=== PATIENT | female | born 2000 | race Caucasian/White ===

== ENCOUNTER 2019-05-19 22:14 | Emergency (ER) | payer OTHER, SELFPAY ==
--- NOTE | ~2019-05-19 | CT_ITS ---
EXAMINATION: CT abdomen pelvis wo con DATE: 05/20/2019 00:17 INDICATION: Left flank pain and hematuria TECHNIQUE: Computed tomography (CT) of the abdomen and pelvis was performed without intravenous contr ast. The dose-length product (DLP) was 172.03 mGy-cm. Automated exposure control and iterative recons truction technique were employed. COMPARISON: 02/15/2018 FINDINGS: The lung bases are clear. The heart size is normal. The liver, spleen, pancreas, gallbladde r, and adrenal glands are normal. The kidneys are unremarkable. No stones are identified in the kidne ys, ureters, or bladder. There is no hydronephrosis or hydroureter. A moderate volume of colonic stoo l is present. No pathologically enlarged abdominal or pelvic lymph nodes are identified. There is no free intraperitoneal gas or evidence of bowel obstruction. The appendix is normal. IMPRESSION: 1. No urinary tract calculi identified. No CT correlate for the patient's symptoms. Reviewed, dictated and finalized at location A. [facility] SPECIALIST IMPRESSION: 1. No urinary tract calculi identified. No CT correlate for the patient's sympt oms.
[2019-05-19 22:30] VITALS: BP 146/92; PULSE 94; RESP 17; TEMP 37.2; O2SAT 99
[2019-05-19 22:36] LABS: Add Urine Microscopic? YES; Appearance Urine Clear (Clear); Bilirubin Urine Negative (Negative); Blood Urine 2+ (Negative); Color Urine Yellow (Yellow); Glucose Urine UA Negative (Negative); Ketones Urine Trace (Negative); Leukocyte Esterase Ur Negative LEU/UL (Negative); Nitrate Urine Negative (Negative); Protein Urine Negative (Negative); Specific Grav Ur 1.025 (1.010-1.020); pH Urine 6.5 (5.0-8.0)
[2019-05-19 22:41] LABS: Pregnancy On Board Control Positive; Urine Pregnancy Test Negative
[2019-05-19 22:42] LABS: Specific Gravity Ur 1.025 (1.010-1.035)
[2019-05-19 22:44] LABS: Amorphous Sediment Urine Few; Bacteria Urine 3+ /hpf; Squamous Epithelial Cell Urine Few /hpf (Few); WBC Urine 0-3 /hpf (0-3)
--- NOTE | 2019-05-19 22:51 | ED.ABDPAIN ---
HPI - Abdominal Pain General Chief Complaint: Abdominal Pain Stated Complaint: abd pain on left side Time Seen by Provider: 05/19/19 22:51 Source: patient Mode of arrival: ambulatory Limitations: no limitations History of Present Illness HPI narrative: 18-year-old woman comes in today complaining of right-sided abdominal pain which has gotten gradually worse over the last 2 days. Patient states that she had some nausea and vomiting at onset but has not had any since. She denies dysuria, hematuria, vomiting, diarrhea, rash in vaginal discharge. Patient has no history of kidney stones however the patient's mother has a history of kidney stones. MD elicited complaint: abdominal pain Onset (ago): day(s) (2) Pain Consistency: constant Location: LLQ and L flank Severity: severe Quality: sharp Radiation: other ( Groin) Migration to: no migration Exacerbating factors: other ( lying on left side) Relieving factors: rest Associated symptoms: nausea and vomiting Related Data Patient : No Home Medications Medication Instructions Recorded Confirmed bupropion HCl [Wellbutrin SR] See Rx Instructions .ROUTE .COMPLEX 05/19/19 05/19/19 cyclobenzaprine See Rx Instructions .ROUTE .COMPLEX 05/19/19 05/19/19 naproxen [Naprosyn] See Rx Instructions .ROUTE .COMPLEX 05/19/19 05/19/19 topiramate [Topamax] See Rx Instructions .ROUTE .COMPLEX 05/19/19 05/19/19 Allergies Allergy/AdvReac Type Severity Reaction Status Date / Time No Known Allergies Allergy Verified 05/19/19 23:18 Review of Systems Constitutional: Constitutional: Denies chills, Denies fever(s) and Denies weakness Eyes: Eyes: Denies change in vision and Denies photophobia ENT: Denies dysphagia, Denies nasal congestion and Denies sore throat Cardiovascular: Cardiovascular: Denies chest pain and Denies radiating jaw, neck or arm pain Respiratory: Respiratory: Denies cough and Denies dyspnea Gastrointestinal: Gastrointestinal: Reports as per HPI Genitourinary: Genitourinary: Denies hematuria, Denies nocturia and Denies dysuria Musculoskeletal: Musculoskeletal: Denies joint swelling Integumentary/Breasts: Skin/Breast: Denies pruritus, Denies erythema and Denies rash Neurologic: Denies vertigo, Denies syncope and Denies focal weakness Psychiatric: Psychiatric: Denies anxiety and Denies depression Endocrine: Endocrine: Denies polydipsia and Denies polyuria Hematologic/Lymphatic: Hematologic/Lymphatic: Denies easy bleeding and Denies easy bruising Allergic/Immunologic: Allergic/Immunologic: Denies lip swelling and Denies wheezing PMFSH Past Medical History Medical History Anxiety Depression Hip dysplasia Migraine Social History Social History (Updated 05/19/19 @ 23:06 by Onesimo Rangel MD) Smoking status: Current every day smoker Alcohol intake: never Substance use: current Substance use type: marijuana Other substance usage details: Daily Living arrangements: with family Exam Const: General: healthy appearing and alert Orientation/consciousness: patient oriented x3 Other: Moderate acute distress HENMT: Ears: external ears normal and EAC's normal Mouth: Yes Normal oral and palatal mucosa present and Yes moist mucous membranes Throat: posterior oropharynx normal and uvula midline Eyes: Conjunctivae: conjunctivae normal Pupils: Equal, round and reactive pupils present EOM: EOMs intact bilaterally Resp: Effort & Inspection: normal respiratory effort and not labored Auscultation: clear to auscultation bilaterally, no rales, no rhonchi and no wheezes Cardio: Rate: abnormal rate Rhythm: regular rhythm Heart sounds: no murmurs GI: GI Palp: Yes Soft to palpation and Yes Tenderness to palpation present (GI) ( left flank and left lower quadrant. No percussion tenderness or rebound.) Auscultation: normal bowel sounds Skin: General skin exam: normal color, no jaundice and
[2019-05-19 23:00] VITALS: BP 140/88; PULSE 90; RESP 16
--- NOTE | 2019-05-19 23:02 | PC.NURSE ---
left arm can not be used for IV's or lab draws, unable to start IV meds until lab done.
[2019-05-19 23:18] LABS: Hematocrit 39.6 % (35.0-49.0); Hemoglobin 13.5 g/dL (12.0-15.0); Mean Corpuscular HGB Conc 34.1 g/dL (32.0-36.0); Mean Corpuscular Hemoglobin 30.2 pg (27.0-31.0); Mean Corpuscular Volume 88.6 fL (78.0-102.0); Mean Platelet Volume 9.2 fl (9.2-11.8); Platelet Count Result 236 K/mm3 (150-420); Red Blood Count 4.47 M/mm3 (4.20-5.40); Red Cell Distribution Width 12.2 % (11.6-14.4)
[2019-05-19 23:19] LABS: Basophils Absolute Auto 0.03 K/mm3 (0.00-0.10); Basophils Percent Auto 0.5 % (0.0-1.0); Eosinophils Absolute Auto 0.07 K/mm3 (0.02-0.50); Eosinophils Percent Auto 1.2 % (1.0-6.0); Lymphocytes Absolute Auto 1.61 K/mm3 (1.10-4.50); Monocytes Absolute Auto 0.46 K/mm3 (0.10-0.90); Monocytes Percent Auto 7.7 % (2.0-11.0); Neutrophils Absolute Auto 3.8 K/mm3 (1.7-7.2); Neutrophils Percent Auto 63.6 % (50.0-70.0)
[2019-05-19] MEDS: KETOROLAC 30 MG/ML VIAL (*BKC) IV PUSH (23:20)
[2019-05-19] MEDS: ONDANSETRON INJ 4 MG/2 ML VIAL IV PUSH (23:22)
[2019-05-19 23:30] LABS: Alanine Aminotransferase 19 U/L (14-59); Albumin Level 4.3 g/dL (3.4-5.0); Alkaline Phosphatase 60 U/L (46-116); Anion Gap 14.6 mmol/L (7-16); Aspartate Amino Transferase 15 U/L (15-37); Bilirubin,Total 0.4 mg/dL (0.00-1.00); Blood Urea Nitrogen 10 mg/dL (7-18); Calcium 8.6 mg/dL (8.5-10.1); Carbon Dioxide 27 mmol/L (21-32); Chloride 105 mmol/L (98-108); Estimated Glomerular Filt Rate > 60; Glucose 96 mg/dL (70-99); Lipase 63 U/L (73-393); Osmolality Calculated 295 mOsm/kg (285-295); Potassium 3.6 mmol/L (3.5-5.1); Sodium 143 mmol/L (136-145); Total Protein 7.4 g/dL (6.4-8.2)
[2019-05-20 00:47] VITALS: BP 111/88; PULSE 72; RESP 16; TEMP 37.1
--- NOTE | 2019-05-20 00:53 | PC.NURSE ---
discharge instructions given, waiting for mom to come get patient
== END 2019-05-20 01:15 | disposition home or self-care (01) ==
PROVIDERS: Emergency Provider Emergency Medicine; PCP Physician Assistant
DX: R10.9 Unspecified abdominal pain (principal)
CPT/HCPCS: 36415; 74176; 80053; 81001; 81025; 83690; 85025; 96374; 96375; 99282; 99284; J1885; J2405

== ENCOUNTER 2019-11-03 21:17 | Emergency (ER) | payer OTHER, SELFPAY ==
[2019-11-03 21:20] VITALS: BP 147/62; PULSE 74; RESP 20; TEMP 36.8; O2SAT 99
--- NOTE | 2019-11-03 21:58 | ED.ABDPAIN ---
HPI - Abdominal Pain General Chief Complaint: Unspecified Stated Complaint: pt wants a test Time Seen by Provider: 11/03/19 21:58 Source: patient Mode of arrival: ambulatory Limitations: no limitations History of Present Illness HPI narrative: 18-year-old woman comes in today complaining of crampy low abdominal pain which has been present for the last week or so. Patient states that she has also had morning nausea for the last 2 or 3 days. She states that she took a home urine test 1 week ago and it was faintly positive. She states that her vaginal discharge is no different than usual, and she has no hematuria, dysuria, vaginal bleeding, fever, vomiting, diarrhea or rash. She has Depo-Provera for control. MD elicited complaint: abdominal pain Onset (ago): week(s) (1) Pain Consistency: intermittent Location: suprapubic Severity: mild Quality: cramping Radiation: none Migration to: no migration Exacerbating factors: nothing Relieving factors: nothing Associated symptoms: nausea Related Data Home Medications Medication Instructions Recorded Confirmed topiramate [Topamax] See Rx Instructions .ROUTE .COMPLEX 05/19/19 05/19/19 Effexor XR 37.5 mg PO DAILY 11/03/19 11/03/19 Seroquel 100 mg PO DAILY 11/03/19 11/03/19 Allergies Allergy/AdvReac Type Severity Reaction Status Date / Time No Known Allergies Allergy Verified 05/19/19 23:18 Review of Systems Constitutional: Constitutional: Denies chills, Denies fever(s) and Denies weakness Eyes: Eyes: Denies change in vision and Denies photophobia ENT: Denies dysphagia, Denies nasal congestion and Denies sore throat Cardiovascular: Cardiovascular: Denies chest pain and Denies radiating jaw, neck or arm pain Respiratory: Respiratory: Denies cough, Denies dyspnea and Denies wheezing Gastrointestinal: Gastrointestinal: Denies abdominal pain, Denies diarrhea, Denies nausea and Denies vomiting Genitourinary: Genitourinary: Denies abnormal vaginal bleeding, Denies hematuria, Denies nocturia, Denies dysuria and Denies vaginal discharge Musculoskeletal: Musculoskeletal: Denies arthralgias and Denies joint swelling Integumentary/Breasts: Skin/Breast: Denies pruritus, Denies erythema and Denies rash Neurologic: Denies vertigo, Denies dizziness and Denies syncope Hematologic/Lymphatic: Hematologic/Lymphatic: Denies easy bleeding and Denies easy bruising Allergic/Immunologic: Allergic/Immunologic: Denies lip swelling and Denies wheezing [facility] Social History Social History Smoking status: Current every day smoker Alcohol intake: never Substance use: current Substance use type: marijuana Other substance usage details: Daily Exam Const: General: healthy appearing, no acute distress and alert Orientation/consciousness: patient oriented x3 Limitations: no limitations HENMT: Head: normal to inspection Ears: external ears normal, TM's normal bilaterally and EAC's normal General nose exam: Normal nares present Face and sinus: normal facial exam Mouth: Yes moist mucous membranes Throat: posterior oropharynx normal Eyes: Conjunctivae: conjunctivae normal Pupils: Equal, round and reactive pupils present EOM: EOMs intact bilaterally Neck: Neck: normal visual inspection and no lymphadenopathy Resp: Effort & Inspection: normal respiratory effort and not labored Auscultation: clear to auscultation bilaterally, no rales, no rhonchi and no wheezes Cardio: Rate: regular rate Rhythm: regular rhythm Heart sounds: no murmurs GI: Inspection: non-distended GI Palp: Yes Soft to palpation, No Tenderness to palpation present (GI), No Guarding due to palpation present (GI), No Rigid due to palpation, No Palpable mass present and No Rebound tenderness present Skin: General skin exam: normal color, no jaundice and no pallor Rashes: no rashes Neuro: General: patient oriented x3, moves all e
[2019-11-03 22:06] LABS: Add Urine Microscopic? YES; Appearance Urine Clear (Clear); Bilirubin Urine Negative (Negative); Blood Urine 1+ (Negative); Color Urine Yellow (Yellow); Glucose Urine UA Negative (Negative); Ketones Urine Negative (Negative); Leukocyte Esterase Ur Negative (Negative); Nitrate Urine Negative (Negative); Protein Urine Negative (Negative); Specific Grav Ur 1.015 (1.010-1.020); Urobilinogen Urine 0.2 mg/dL (0.2-1.0)
[2019-11-03 22:09] LABS: RBC Urine 0-2 /hpf (0-2)
[2019-11-03 22:10] LABS: Bacteria Urine Trace /hpf; Mucus Urine None seen /lpf; WBC Urine None seen /hpf (0-3)
[2019-11-03 22:11] LABS: Pregnancy On Board Control Positive; Urine Pregnancy Test Negative
== END 2019-11-03 22:24 | disposition home or self-care (01) ==
PROVIDERS: Emergency Provider Emergency Medicine; PCP Physician Assistant
DX: R10.2 Pelvic and perineal pain (principal)
CPT/HCPCS: 81001; 81025; 87491; 87591; 99282; 99284

== ENCOUNTER 2020-01-27 15:24 | Emergency (ER) | payer OTHER, SELFPAY ==
[2020-01-27 15:40] VITALS: BP 140/82; PULSE 92; RESP 16; TEMP 36.7; O2SAT 98
[2020-01-27 16:28] LABS: Basophils Absolute Auto 0.03 K/mm3 (0.00-0.10); Basophils Percent Auto 0.4 % (0.0-1.0); Eosinophils Absolute Auto 0.18 K/mm3 (0.02-0.50); Eosinophils Percent Auto 2.3 % (1.0-6.0); Hematocrit 42.4 % (35.0-49.0); Hemoglobin 14.2 g/dL (12.0-15.0); Immature Granulocyte Absolute 0.02 K/mm3 (0.00-0.00); Immature Granulocyte Percent A 0.3 % (0.0-0.0); Lymphocytes Absolute Auto 2.01 K/mm3 (1.10-4.50); Mean Corpuscular HGB Conc 33.5 g/dL (32.0-36.0); Mean Corpuscular Hemoglobin 31.1 pg (27.0-31.0); Mean Corpuscular Volume 92.8 fL (78.0-102.0); Mean Platelet Volume 9.8 fl (9.2-11.8); Monocytes Absolute Auto 0.41 K/mm3 (0.10-0.90); Monocytes Percent Auto 5.3 % (2.0-11.0); Neutrophils Absolute Auto 5.1 K/mm3 (1.7-7.2); Neutrophils Percent Auto 65.7 % (50.0-70.0); Platelet Count Result 247 K/mm3 (150-420); Red Blood Count 4.57 M/mm3 (4.20-5.40); Red Cell Distribution Width 12.2 % (11.6-14.4); White Blood Count 7.7 K/mm3 (4.8-10.8)
--- NOTE | 2020-01-27 16:33 | ED.FEMALEGU ---
HPI - Female Genitourinary General Chief complaint: Urogenital-Female Stated complaint: abnormal discharge/lower abd pain Source: patient Mode of arrival: ambulatory Limitations: no limitations History of Present Illness HPI Narrative: this is a 19-year-old female that presents with a arm vaginal discharge that she describes as green mucus like discharged started over the last 24 to 48 hours patient has unprotected sex with her boyfriend and is suspicious of STI, currently there is a mild abdominal discomfort secondary to history of endometriosis. With no fever chills no nausea vomiting no flank pain no dysuria no hematuria. MD elicited complaint: vaginal discharge Female Urogenital Radiation: Suprapubic Severity scale (1-10): 4 Consistency: constant Vaginal discharge: other ( green mucus-like discharge) Vaginal bleeding: moderate Exacerbating factors: none Relieving factors: none Associated symptoms: abdominal pain Related Data Home Medications Medication Instructions Recorded Confirmed topiramate [Topamax] 50 mg PO DAILY 05/19/19 05/19/19 Effexor XR 37.5 mg PO DAILY 11/03/19 11/03/19 Seroquel 100 mg PO DAILY 11/03/19 11/03/19 Allergies Allergy/AdvReac Type Severity Reaction Status Date / Time No Known Allergies Allergy Verified 05/19/19 23:18 Review of Systems Review of Systems: All systems reviewed & are unremarkable except as noted in HPI and below PMFSH Past Medical History Medical History Anxiety Depression Hip dysplasia Migraine Social History Social History Smoking status: Current every day smoker Alcohol intake: never Substance use: current Substance use type: marijuana Other substance usage details: Daily Exam Const: General: no acute distress and alert Orientation/consciousness: patient oriented x3 HENMT: Head: normal to inspection Eyes: Conjunctivae: conjunctivae normal Pupils: Equal, round and reactive pupils present EOM: EOMs intact bilaterally Neck: Neck: normal visual inspection, no lymphadenopathy and no meningeal signs Chest: Chest palpation & inspection: normal inspection of the chest Resp: Effort & Inspection: normal respiratory effort Auscultation: clear to auscultation bilaterally Cardio: Rate: regular rate Rhythm: regular rhythm GI: GI Palp: Yes Soft to palpation Auscultation: normal bowel sounds : Other: Pelvic exam does not elicit any erythema there is currently no vaginal discharge no order, does have some mild discomfort with some cervical motion. Back/Spine/Pelvis: Back: no CVA tenderness Neuro: General: patient oriented x3 Extrem: General: normal to inspection and no pedal edema Psych: Mental Status: mental status grossly normal Course Course Emergency Course: Patient received a 250 mg of ceftriaxone and 1 g of azithromycin, advised patient that we checked a GNC, HIV RPR. Vital Signs Vital signs: Vital Signs Temperature 36.7 C 01/27/20 15:40 Pulse Rate 92 01/27/20 15:40 Respiratory Rate 16 01/27/20 15:40 Blood Pressure 140/82 01/27/20 15:40 Pulse Oximetry 98 01/27/20 15:40 Temperature 36.7 C 01/27/20 15:40 Pulse Rate 92 01/27/20 15:40 Respiratory Rate 16 01/27/20 15:40 Blood Pressure 140/82 01/27/20 15:40 Pulse Oximetry 98 01/27/20 15:40 MDM - Female Genitourinary Lab Data Result diagrams: 01/27/20 16:23 01/27/20 16:23 Labs: Lab Results 01/27/20 01/27/20 01/27/20 Range/Units 16:13 16:23 16:23 WBC Pending RBC Pending Hgb Pending Hct Pending MCV Pending MCH Pending MCHC Pending RDW Pending Plt Count Pending MPV Pending Immature Gran % (Auto) Pending Neut % (Auto) Pending Lymph % (Auto) Pending Dixon % (Auto) Pending Eos % (Auto) Pending Baso % (Auto) Pending
[2020-01-27 16:43] LABS: Alanine Aminotransferase 21 U/L (14-59); Albumin Level 4.3 g/dL (3.4-5.0); Alkaline Phosphatase 73 U/L (46-116); Anion Gap 11 mmol/L (8-16); Aspartate Amino Transferase 16 U/L (15-37); Bilirubin,Total 0.2 mg/dL (0.00-1.00); Blood Urea Nitrogen 11 mg/dL (7-18); Calcium 9.1 mg/dL (8.5-10.1); Carbon Dioxide 24 mmol/L (21-32); Chloride 103 mmol/L (98-108); Estimated CRCL calculation 88 ml/min; Estimated Glomerular Filt Rate > 60; Glucose 89 mg/dL (70-99); Osmolality Calculated 284 mOsm/kg (285-295); Potassium 3.9 mmol/L (3.5-5.1); Sodium 138 mmol/L (136-145); Total Protein 7.9 g/dL (6.4-8.2)
[2020-01-27 17:05] LABS: HIV 1 P24 AG Negative (Negative); HIV 1/2 AB Negative (Negative)
[2020-01-27] MEDS: LIDOCAINE HCL 1% LOCAL INJ 20 ML VIAL (17:15)
[2020-01-27] MEDS: cefTRIAXone 250 MG VIAL IM (17:15)
[2020-01-27] MEDS: AZITHROMYCIN 250 MG TABLET 1000 MG PO (17:15)
[2020-01-27 17:17] VITALS: PULSE 90; RESP 15; TEMP 36.6; O2SAT 99
[2020-01-27 17:21] VITALS: BP 140/82; PULSE 90; RESP 15; TEMP 36.6; O2SAT 99
[2020-01-29 18:53] LABS: RPR Screen Non-Reactive (Non-Reactive)
--- NOTE | 2020-01-31 15:55 | PC.NURSE ---
FLAGYL 2 G PO X 1 DOSE CALLED IN TO [facility]
== END 2020-01-27 17:25 | disposition home or self-care (01) ==
PROVIDERS: Emergency Provider Emergency Medicine; PCP Physician Assistant
DX: Z20.2 Contact with and (suspected) exposure to infections with a predominantly sexual mode of transmission (principal)
CPT/HCPCS: 36415; 80053; 85025; 86592; 86703; 87070; 87491; 87591; 96372; 99283; 99284; A9270; J0696

== ENCOUNTER 2020-04-15 09:52 | Outpatient (CLI) | payer OTHER, SELFPAY ==
[2020-04-15 10:22] LABS: SARS-CoV-2 Ag Negative (Negative)
== END 2020-04-15 09:53 | disposition home or self-care (01) ==
PROVIDERS: PCP Physician Assistant; Visit Provider Physician Assistant
DX: Z20.822 Contact with and (suspected) exposure to COVID-19 (principal)
CPT/HCPCS: 87426; C9803

== ENCOUNTER 2020-06-01 17:37 | Emergency (ER) | payer OTHER, SELFPAY ==
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
[2020-06-01 17:58] VITALS: BP 126/75; PULSE 84; RESP 16; TEMP 36.8; O2SAT 98
[2020-06-01] MEDS: TETANUS,DIPHTHERIA,AC PERTUSSIS ADULT 0.5 ML (ADACEL) IM (18:05)
== END 2020-06-01 18:15 | disposition home or self-care (01) ==
PROVIDERS: Emergency Provider Emergency Medicine; PCP Physician Assistant
DX: T22.211A Burn of second degree of right forearm, initial encounter (principal); X12.XXXA Contact with other hot fluids, initial encounter
CPT/HCPCS: 90471; 90715; 99282

== ENCOUNTER 2020-07-27 14:50 | Emergency (ER) | payer OTHER, SELFPAY ==
[2020-07-27 15:00] VITALS: BP 135/95; PULSE 102; RESP 16; TEMP 36.8; O2SAT 98
--- NOTE | 2020-07-27 15:23 | ED.GENADULT ---
HPI - General Adult General Chief complaint: Unspecified Stated complaint: preg test Source: patient and RN notes reviewed Mode of arrival: ambulatory Limitations: no limitations History of Present Illness HPI narrative: patient has a history of endometriosis and had a abdominal pain on the left side today. She is currently not on any control and having unprotected sex. She took a urine test at home that was negative. She is very anxious and worried about being because she had a beer last night. MD complaint: Wants test Location: abdomen Radiation: non-radiation Severity: mild Quality: stabbing and sharp Pain Consistency: now resolved Relieving factors: none Exacerbating factors: none Associated symptoms: denies other symptoms Treatments prior to arrival: none Related Data Home Medications Medication Instructions Recorded Confirmed cyclobenzaprine 10 mg PO HS 01/27/20 07/27/20 quetiapine 100 mg PO DAILY 01/27/20 07/27/20 topiramate 50 mg PO BID 01/27/20 07/27/20 venlafaxine 37.5 mg PO DAILY 01/27/20 07/27/20 Allergies Allergy/AdvReac Type Severity Reaction Status Date / Time No Known Allergies Allergy Verified 05/19/19 23:18 Review of Systems Review of Systems: All systems reviewed & are unremarkable except as noted in HPI and below PMFSH Past Medical History Medical History (Updated 07/27/20 @ 15:38 by Brandin Farias MD) Anxiety Craniosynostosis Depression Endometriosis Hip dysplasia Migraine Social History Social History Smoking status: Current every day smoker Alcohol intake: never Substance use: current Substance use type: marijuana Other substance usage details: Daily Exam Const: General: cooperative, healthy appearing, well developed, alert, awake and Physically active Nutritional Appearance: average body habitus and well nourished Orientation/consciousness: patient oriented x3 Limitations: no limitations Other: female nurse in room during examination. HENMT: Head: normal to inspection Eyes: General: appearance normal, both eyes and all related structures Periorbital: periorbital findings normal Eyelids: eyelids normal Conjunctivae: conjunctivae normal Sclera: sclerae normal Pupils: Equal, round and reactive pupils present EOM: EOMs intact bilaterally Neck: Neck: normal visual inspection and full ROM Resp: Effort & Inspection: normal respiratory effort Auscultation: clear to auscultation bilaterally Cardio: Rate: regular rate Rhythm: regular rhythm Heart sounds: no murmurs GI: GI Palp: Yes abdominal tenderness ( Lower pelvis, mild) and No Guarding due to palpation present (GI) Auscultation: normal bowel sounds Back/Spine/Pelvis: Cervical Spine: cervical ROM normal Thoracic/Lumbar Spine: thoraco-lumbar ROM normal Skin: General skin exam: normal color and turgor normal Neuro: General: patient oriented x3, gait normal and moves all extremities Cranial nerves: Yes CN's II-XII intact bilaterally Cognition (Neuro): normal cognition Speech: normal speech Motor exam (neuro): 5/5 motor strength present throughout Sensory Exam: normal sensation Extrem: General: normal to inspection, full ROM and no clubbing, cyanosis or edema Psych: Appearance: grossly normal and well kempt Speech and movement: Normal speech and movement present Affect: normal affect Attitude: cooperative Thought process: Normal thought process present Course Course Emergency Course: patient reassured that her test is negative she should wait to have her next menstrual cycle. Vital Signs Vital signs: Vital Signs Temperature 36.8 C 07/27/20 15:00 Pulse Rate 102 H 07/27/20 15:00 Respiratory Rate 16 07/27/20 15:00 Blood Pressure 135/95 H 07/27/20 15:00 Pulse Oximetry 98 07/27/20 15:00 Temperature 36.8 C 07/27/20 15:00 Pulse Rate 102 H 07/27/20 15:00 Respiratory Ra
[2020-07-27 15:31] LABS: Pregnancy On Board Control Positive; Urine Pregnancy Test Negative
== END 2020-07-27 15:46 | disposition home or self-care (01) ==
PROVIDERS: Emergency Provider Emergency Medicine; PCP Physician Assistant
DX: R10.9 Unspecified abdominal pain (principal); Z32.02 Encounter for pregnancy test, result negative; F17.200 Nicotine dependence, unspecified, uncomplicated; F12.90 Cannabis use, unspecified, uncomplicated; F41.9 Anxiety disorder, unspecified; Q75.0 Craniosynostosis; F32.9 Major depressive disorder, single episode, unspecified; N80.9 Endometriosis, unspecified; Q89.9 Congenital malformation, unspecified; G43.909 Migraine, unspecified, not intractable, without status migrainosus
CPT/HCPCS: 81025; 99282

== ENCOUNTER 2020-12-20 16:39 | Emergency (ER) | payer OTHER, SELFPAY ==
--- NOTE | ~2020-12-20 | CT_ITS ---
EXAMINATION: CT abdomen pelvis wo con DATE: 12/20/2020 18:10 INDICATION: Hematuria. Diffuse abdominal pain with left lower quadrant predominance. TECHNIQUE: Computed tomography (CT) of the abdomen and pelvis was performed without intravenous contr ast. Automated exposure control and iterative reconstruction technique were employed. The dose-length product was 251.69 mGy-cm. COMPARISON: 05/20/2019 FINDINGS: Lung bases are clear. Heart size is normal. No pericardial or pleural effusion. Small calcifications at the liver and spleen consistent with old granulomatous disease. Gallbladder, pancreas, bilateral a drenal glands are normal. Kidneys and ureters are normal with no urolithiasis, hydroureteronephrosis or perinephric/ureteral stranding. Bladder, retroverted uterus and bilateral adnexa are unremarkable. Moderate amount of stool in the proximal and distal colon. Small bowel and appendix are normal. No f ree intraperitoneal gas or fluid. No pathologically enlarged abdominal or pelvic lymphadenopathy. Bon es are unremarkable. IMPRESSION: 1. No urolithiasis or acute intra-abdominal/pelvic process. Reviewed, dictated and finalized at location A.
--- NOTE | 2020-12-20 16:55 | ED.ABDPAIN ---
HPI - Abdominal Pain General Chief Complaint: Abdominal Pain Stated Complaint: pain in stomach severe Source: patient and RN notes reviewed Mode of arrival: ambulatory Limitations: no limitations History of Present Illness MD elicited complaint: abdominal pain Pertinent past history: other (endometriosis) Onset (ago): day(s) (2) Pain Consistency: intermittent Location: RLQ and LLQ Severity: moderate Quality: cramping and stabbing Radiation: none Migration to: no migration Exacerbating factors: vomiting Relieving factors: nothing Associated symptoms: vomiting and dysuria Related Data Home Medications Medication Instructions Recorded Confirmed cyclobenzaprine 10 mg PO HS 01/27/20 12/20/20 quetiapine 100 mg PO DAILY 01/27/20 12/20/20 topiramate 50 mg PO BID 01/27/20 12/20/20 venlafaxine 37.5 mg PO DAILY 01/27/20 12/20/20 Allergies Allergy/AdvReac Type Severity Reaction Status Date / Time No Known Allergies Allergy Verified 05/19/19 23:18 Review of Systems Constitutional: Constitutional: Denies chills and Denies fever(s) Cardiovascular: Cardiovascular: Denies chest pain Respiratory: Respiratory: Denies cough and Denies dyspnea Gastrointestinal: Gastrointestinal: Denies constipation and Denies diarrhea PMFSH Past Medical History Medical History Anxiety Craniosynostosis Depression Endometriosis Hip dysplasia Migraine Social History Social History Smoking status: Current every day smoker Alcohol intake: never Substance use: current Substance use type: marijuana Other substance usage details: Daily Exam Const: General: healthy appearing and no acute distress Nutritional Appearance: well nourished Orientation/consciousness: patient oriented x3 Other: female nurse in room during examination. HENMT: Head: normal to inspection Ears: external ears normal Face and sinus: normal facial exam Mouth: Yes moist mucous membranes Eyes: Conjunctivae: conjunctivae normal Pupils: Equal, round and reactive pupils present EOM: EOMs intact bilaterally Neck: Neck: normal visual inspection Resp: Effort & Inspection: normal respiratory effort Auscultation: clear to auscultation bilaterally Cardio: Rate: regular rate Rhythm: regular rhythm GI: GI Palp: Yes Soft to palpation, Yes Tenderness to palpation present (GI) (lower abdomen moderate), Yes Guarding due to palpation present (GI) and No Rebound tenderness present Auscultation: normal bowel sounds : General: Yes no CVA tenderness Back/Spine/Pelvis: Cervical Spine: cervical ROM normal Thoracic/Lumbar Spine: thoraco-lumbar ROM normal Skin: General skin exam: normal color Rashes: no rashes Neuro: General: patient oriented x3, moves all extremities, no meningeal signs and no focal motor deficits Speech: normal speech Gait exam (Neuro): Normal gait present Extrem: General: normal to inspection and no clubbing, cyanosis or edema Psych: Appearance: grossly normal and well kempt Mental Status: mental status grossly normal Affect: normal affect Attitude: cooperative Thought content: Yes Normal thought content present Course Vital Signs Vital signs: Vital Signs Temperature 36.2 C L 12/20/20 17:00 Pulse Rate 61 12/20/20 17:00 Respiratory Rate 18 12/20/20 17:00 Blood Pressure 155/98 H 12/20/20 17:00 Pulse Oximetry 100 12/20/20 17:00 Temperature 36.2 C L 12/20/20 17:00 Pulse Rate 72 12/20/20 18:25 Respiratory Rate 16 12/20/20 18:25 Blood Pressure 114/64 12/20/20 18:25 Pulse Oximetry 100 12/20/20 18:25 MDM - Abdominal Pain Lab Data Attestation: I reviewed the patient's lab results. Result diagrams: 12/20/20 17:15 12/20/20 17:15 Labs: Lab Results 12/20/20 12/20/20 12/20/20 Range/Units 17:15 17:15 17:15 WBC 10.9 H (4.8-10.8) K/mm3 RBC 4.84 (4.20-5.40)
[2020-12-20 17:00] VITALS: BP 155/98; PULSE 61; RESP 18; TEMP 36.2; O2SAT 100
[2020-12-20] MEDS: ONDANSETRON HCL ODT 4 MG TABLET PO (17:08)
[2020-12-20 17:19] LABS: Basophils Absolute Auto 0.02 K/mm3 (0.00-0.10); Basophils Percent Auto 0.2 % (0.0-1.0); Eosinophils Absolute Auto 0.09 K/mm3 (0.02-0.50); Eosinophils Percent Auto 0.8 % (1.0-6.0); Hematocrit 43.8 % (35.0-49.0); Hemoglobin 14.7 g/dL (12.0-15.0); Immature Granulocyte Absolute 0.06 K/mm3 (0.00-0.00); Immature Granulocyte Percent A 0.6 % (0.0-0.0); Lymphocytes Absolute Auto 1.31 K/mm3 (1.10-4.50); Mean Corpuscular HGB Conc 33.6 g/dL (32.0-36.0); Mean Corpuscular Hemoglobin 30.4 pg (27.0-31.0); Mean Corpuscular Volume 90.5 fL (78.0-102.0); Mean Platelet Volume 9.8 fl (9.2-11.8); Monocytes Absolute Auto 0.48 K/mm3 (0.10-0.90); Monocytes Percent Auto 4.4 % (2.0-11.0); Neutrophils Absolute Auto 8.9 K/mm3 (1.7-7.2); Platelet Count Result 217 K/mm3 (150-420); Red Blood Count 4.84 M/mm3 (4.20-5.40); Red Cell Distribution Width 12.4 % (11.6-14.4); White Blood Count 10.9 K/mm3 (4.8-10.8)
[2020-12-20 17:21] LABS: Add Urine Microscopic? YES; Appearance Urine Clear (Clear); Bilirubin Urine Negative (Negative); Blood Urine 2+ (Negative); Color Urine Light Yellow (Yellow); Glucose Urine UA Negative (Negative); Ketones Urine Trace (Negative); Leukocyte Esterase Ur Trace LEU/UL (Negative); Nitrate Urine Negative (Negative); Protein Urine Trace (Negative); Urobilinogen Urine 0.2 mg/dL (0.2-1.0); pH Urine 6.5 (5.0-8.0)
[2020-12-20 17:31] LABS: Pregnancy On Board Control Positive; Urine Pregnancy Test Negative; WBC Urine 0-3 /hpf (0-3)
[2020-12-20 17:32] LABS: Bacteria Urine 2+ /hpf; Squamous Epithelial Cell Urine Rare /hpf (Few)
[2020-12-20 17:36] LABS: Alanine Aminotransferase 19 U/L (14-59); Albumin Level 4.5 g/dL (3.4-5.0); Alkaline Phosphatase 75 U/L (46-116); Anion Gap 12 mmol/L (8-16); Aspartate Amino Transferase 12 U/L (15-37); Bilirubin,Total 0.4 mg/dL (0.00-1.00); Blood Urea Nitrogen 10 mg/dL (7-18); Calcium 8.9 mg/dL (8.5-10.1); Carbon Dioxide 27 mmol/L (21-32); Chloride 104 mmol/L (98-108); Estimated CRCL calculation 72 ml/min; Estimated Glomerular Filt Rate > 60; Glucose 92 mg/dL (70-99); Lipase 51 U/L (73-393); Osmolality Calculated 295 mOsm/kg (285-295); Potassium 3.6 mmol/L (3.5-5.1); Sodium 143 mmol/L (136-145); Total Protein 7.7 g/dL (6.4-8.2)
[2020-12-20 17:39] LABS: CRP < 0.5 mg/dL (0.0-0.9)
[2020-12-20] MEDS: KETOROLAC 30 MG/ML VIAL (*BKC) IM (17:50)
[2020-12-20 18:25] VITALS: BP 114/64; PULSE 72; RESP 16; O2SAT 100
== END 2020-12-20 19:25 | disposition home or self-care (01) ==
PROVIDERS: Emergency Provider Emergency Medicine
DX: K59.00 Constipation, unspecified (principal)
CPT/HCPCS: 36415; 74176; 80053; 81001; 81025; 83690; 85025; 86140; 96372; 99283; 99284; A9270; J1885

== ENCOUNTER 2021-09-06 20:17 | Emergency (ER) | payer OTHER, SELFPAY ==
[2021-09-06 20:24] VITALS: BP 131/72; PULSE 85; RESP 20; TEMP 36.2; O2SAT 98
--- NOTE | 2021-09-06 20:37 | ED.NAVMDI ---
HPI - Nausea/Vomiting/Diarrhea General Chief complaint: Nausea/Vomiting/Diarrhea Stated complaint: vomiting Time Seen by Provider: 09/06/21 20:37 History of Present Illness HPI Narrative: 20-year-old female patient 1 para 0, approximately 22 weeks is here with complaints of nausea and vomiting all day. She states that symptoms started this morning and have persisted. She reports having vomited 3 times during the day. States that she has intermittent cramping in the lower abdomen but can feel the baby kicking. Denies any fever or chills. States that she has felt hot all day and denies any urinary symptoms. No diarrhea. Patient smokes half a pack of cigarettes. And she is under care of OB at [facility]. The patient states that she does have nausea pills at home but apparently that did not help. Related Data Home Medications Medication Instructions Recorded Confirmed ondansetron HCl 4 mg tablet 4 tablet PO PRN 09/06/21 09/06/21 Allergies Allergy/AdvReac Type Severity Reaction Status Date / Time No Known Allergies Allergy Verified 09/06/21 20:29 Review of Systems Review of Systems: All systems reviewed & are unremarkable except as noted in HPI and below PMFSH Past Medical History Medical History Anxiety Craniosynostosis Depression Endometriosis Hip dysplasia Migraine Social History Social History Smoking status: Current every day smoker Alcohol intake: never Substance use: current Substance use type: marijuana Other substance usage details: Daily Exam Const: General: healthy appearing, no acute distress and alert Nutritional Appearance: well nourished Orientation/consciousness: patient oriented x3 Limitations: no limitations HENMT: Head: normal to inspection Ears: external ears normal General nose exam: Normal external nose present Face and sinus: normal facial exam Mouth: Yes Normal oral and palatal mucosa present and Yes moist mucous membranes Teeth and gingiva: dentition normal Throat: posterior oropharynx normal Eyes: Conjunctivae: conjunctivae normal Cornea: corneas normal Pupils: Equal, round and reactive pupils present EOM: EOMs intact bilaterally Direct Ophthalmoscopy: no photophobia Neck: Neck: normal visual inspection, no lymphadenopathy and no meningeal signs Chest: Chest palpation & inspection: normal inspection of the chest Resp: Effort & Inspection: normal respiratory effort, not labored, no retractions, not tachypneic and no use of accessory muscles Auscultation: clear to auscultation bilaterally Cardio: Rate: regular rate Rhythm: regular rhythm Heart sounds: Murmur heart sound present GI: GI Palp: Yes Soft to palpation, No Tenderness to palpation present (GI), No Guarding due to palpation present (GI), No Rigid due to palpation, No Hernia present, No Palpable mass present and No Rebound tenderness present Auscultation: normal bowel sounds : General: Yes bladder normal to palpation Other: Pelvic exam has been deffered Back/Spine/Pelvis: Back: no CVA tenderness Skin: General skin exam: normal color Rashes: no rashes Wounds: no wounds Neuro: General: patient oriented x3, moves all extremities, no meningeal signs, no focal motor deficits and CN's II-XI intact bilaterally Cranial nerves: Yes Nystagmus not present Speech: normal speech Gait exam (Neuro): Normal gait present Extrem: General: normal to inspection Psych: Mental Status: mental status grossly normal Affect: Anxious affect present Attitude: cooperative Course Course Emergency Course: Labs have been reviewed and the patient has normal white cell count with a normal platelet count. Liver enzymes are normal electrolytes are normal. Urinalysis shows 1+ ketones and 2+ bacteria no pyuria. No leukocyte esterase or nitrite positive. Urine culture has been establi
[2021-09-06 20:55] LABS: Basophils Absolute Auto 0.02 K/mm3 (0.00-0.10); Basophils Percent Auto 0.2 % (0.0-1.0); Eosinophils Absolute Auto 0.06 K/mm3 (0.02-0.50); Eosinophils Percent Auto 0.6 % (1.0-6.0); Hematocrit 32.4 % (35.0-49.0); Hemoglobin 11.4 g/dL (12.0-15.0); Immature Granulocyte Absolute 0.04 K/mm3 (0.00-0.00); Immature Granulocyte Percent A 0.4 % (0.0-0.0); Lymphocytes Absolute Auto 1.73 K/mm3 (1.10-4.50); Lymphocytes Percent Auto 17.2 % (18.0-42.0); Mean Corpuscular HGB Conc 35.2 g/dL (32.0-36.0); Mean Platelet Volume 9.5 fl (9.2-11.8); Monocytes Absolute Auto 0.55 K/mm3 (0.10-0.90); Monocytes Percent Auto 5.5 % (2.0-11.0); Neutrophils Absolute Auto 7.6 K/mm3 (1.7-7.2); Neutrophils Percent Auto 76.1 % (50.0-70.0); Platelet Count Result 190 K/mm3 (150-420); Red Blood Count 3.56 M/mm3 (4.20-5.40); Red Cell Distribution Width 12.8 % (11.6-14.4)
[2021-09-06] MEDS: LACTATED RINGERS 1,000 ML 999 ML IV CONT ×2 (20:57→21:48)
[2021-09-06] MEDS: ONDANSETRON INJ 4 MG/2 ML VIAL IV PUSH (21:01)
[2021-09-06 21:05] LABS: Add Urine Microscopic? YES; Appearance Urine Clear (Clear); Bilirubin Urine Negative (Negative); Blood Urine Negative (Negative); Color Urine Yellow (Yellow); Glucose Urine UA Negative (Negative); Ketones Urine 1+ (Negative); Leukocyte Esterase Ur Negative (Negative); Nitrate Urine Negative (Negative); Protein Urine Negative (Negative); Urobilinogen Urine 0.2 mg/dL (0.2-1.0)
[2021-09-06 21:11] LABS: Bacteria Urine 2+ /hpf; RBC Urine 0-2 /hpf (0-2); Squamous Epithelial Cell Urine Many /hpf (Few); WBC Urine 0-3 /hpf (0-3)
[2021-09-06 21:12] LABS: Alanine Aminotransferase 17 U/L (14-59); Albumin Level 3.3 g/dL (3.4-5.0); Alkaline Phosphatase 66 U/L (46-116); Anion Gap 11 mmol/L (8-16); Aspartate Amino Transferase 17 U/L (15-37); Bilirubin,Total 0.4 mg/dL (0.00-1.00); Blood Urea Nitrogen 4 mg/dL (7-18); Calcium 8.5 mg/dL (8.5-10.1); Carbon Dioxide 23 mmol/L (21-32); Chloride 104 mmol/L (98-108); Estimated CRCL calculation 119 ml/min; Estimated Glomerular Filt Rate > 60; Glucose 82 mg/dL (70-99); Osmolality Calculated 281 mOsm/kg (285-295); Potassium 3.2 mmol/L (3.5-5.1); Sodium 138 mmol/L (136-145); Total Protein 6.9 g/dL (6.4-8.2)
[2021-09-06 22:24] VITALS: BP 114/54; PULSE 64; RESP 16; O2SAT 100
== END 2021-09-06 23:34 | disposition home or self-care (01) ==
PROVIDERS: Emergency Provider Emergency Medicine; PCP Physician Assistant
DX: R11.10 Vomiting, unspecified (principal); Z33.1 Pregnant state, incidental
CPT/HCPCS: 36415; 80053; 81001; 85025; 87086; 96361; 96374; 99284; J2405; J7120

== ENCOUNTER 2021-10-27 19:30 | Emergency (ER) | payer OTHER, SELFPAY ==
[2021-10-27 19:30] VITALS: BP 121/81; PULSE 85; RESP 22; TEMP 36.8; O2SAT 100
--- NOTE | 2021-10-27 19:35 | PC.NURSE ---
Call placed to [facility] per protocol. ERP then spoke to oncall OB Dr Erickson for emergency transfer due to pt labor. Pt is anxious and noted to have 1 episode of contraction that lasted about 30 sec. Pt setup for exam per ERP.
[2021-10-27] MEDS: SODIUM CHLORIDE 0.9% IV 1,000 ML 999 ML (20:01)
--- NOTE | 2021-10-27 20:04 | PC.NURSE ---
Edgar Campbell MD, pts ob called and made aware of situation. [phone]
--- NOTE | 2021-10-27 20:04 | ED.PREGNANCY ---
HPI - General Chief complaint: OB/Uterine Contractions Stated complaint: contractions Time Seen by Provider: 10/27/21 19:34 Source: patient, family and RN notes reviewed Mode of arrival: ambulatory Limitations: no limitations History of Present Illness HPI Narrative: Primigravida with mild uterine contractions Complaint: contractions Onset (ago): hour(s) (1) Pain Consistency: intermittent Location: pelvis Severity: moderate Quality: Cramping and Dull Relieving factors: none Exacerbating factors: none Vaginal discharge: none Vaginal bleeding: none Patient : Yes Expected Date of Delivery: 01/11/22 OB History - Current : no complications care: followed by OB Related Data : 2 Para: 0 Total number of abortions (spontaneous and elective): 1 Home Medications Medication Instructions Recorded Confirmed ondansetron HCl 4 mg tablet 4 tablet PO PRN 09/06/21 09/06/21 Allergies Allergy/AdvReac Type Severity Reaction Status Date / Time No Known Allergies Allergy Verified 09/06/21 20:29 Review of Systems Review of Systems: All systems reviewed & are unremarkable except as noted in HPI and below Constitutional: Constitutional: Reports no additional constitutional complaints Eyes: Eyes: Reports no additional eye complaints ENT: Reports system reviewed and no additional complaints, except as documented Cardiovascular: Cardiovascular: Reports no additional cardiovascular complaints Respiratory: Respiratory: Reports no additional respiratory complaints Gastrointestinal: Gastrointestinal: Reports no additional gastrointestinal complaints Genitourinary: Comments: uterine contractions at 29 weeks normal . Musculoskeletal: Musculoskeletal: Reports no additional musculoskeletal complaints Integumentary/Breasts: Skin/Breast: Reports system reviewed and no additional complaints, except as docu Neurologic: Reports system reviewed and no additional complaints, except as documented Psychiatric: Psychiatric: Reports no additional psychiatric complaints Endocrine: Endocrine: Reports no additional endocrine complaints Hematologic/Lymphatic: Hematologic/Lymphatic: Reports no additional hematologic/lymphatic complaints Allergic/Immunologic: Allergic/Immunologic: Reports no additional allergic/immunologic complaints [facility] Past Medical History Medical History Anxiety Craniosynostosis Depression Endometriosis Hip dysplasia Migraine Social History Social History Smoking status: Current every day smoker Alcohol intake: never Substance use: current Substance use type: marijuana Other substance usage details: Daily Exam Const: General: healthy appearing and no acute distress Nutritional Appearance: well nourished Orientation/consciousness: patient oriented x3 Limitations: no limitations HENMT: Head: normal to inspection Ears: external ears normal, TM's normal bilaterally and EAC's normal General nose exam: Normal external nose present and Normal nares present Face and sinus: normal facial exam and sinuses nontender Mouth: Yes Normal oral and palatal mucosa present and Yes moist mucous membranes Teeth and gingiva: dentition normal Throat: posterior oropharynx normal Eyes: Conjunctivae: conjunctivae normal Pupils: Equal, round and reactive pupils present EOM: EOMs intact bilaterally Neck: Neck: normal visual inspection, no lymphadenopathy and no meningeal signs Chest: Chest palpation & inspection: normal inspection of the chest Resp: Effort & Inspection: normal respiratory effort Auscultation: clear to auscultation bilaterally Cardio: Rate: regular rate Rhythm: regular rhythm GI: GI Palp: Yes Soft to palpation and No Tenderness to palpation present (GI) Auscultation: normal bowel sounds : General: Yes
[2021-10-27 20:10] VITALS: BP 137/83; PULSE 80; RESP 20; O2SAT 100
== END 2021-10-27 20:17 | disposition short-term general hospital (02) ==
PROVIDERS: Emergency Provider Emergency Medicine; PCP Physician Assistant
DX: O60.00 Preterm labor without delivery, unspecified trimester (principal)
CPT/HCPCS: 99285; J7030

== ENCOUNTER 2021-12-15 23:23 | Observation (INO) | payer OTHER, SELFPAY ==
[2021-12-15] MEDS: TERBUTALINE SULFATE 1 MG/ML VIAL 0.25 MG SUB-Q (23:33)
[2021-12-15 23:48] VITALS: BMI 30.4
--- NOTE | 2021-12-15 23:48 | OBADM ---
This patient, Mony Wagner, admitted to the OB room Labor/Delivery/Recovery 118 for observation. Patient/family oriented to hospital policies and general routines including ID bracelet, bed and alarms, visiting hours, pain management, procedures, bathroom and other care routines, personal items, smoking policy, room service/diet, and visiting hours. Patient/Family are encouraged to report perceived risks to care and to ask questions if they do not understand what they are told or what they should do.
--- NOTE | 2021-12-16 00:16 | P.PNOB_ITS ---
OB - Triage/Final Diagnosis Visit Information Date of evaluation: 12/16/21 Reason for evaluation: decreased movement and threatened labor Comments/Additional reasons for admission: I have assessed the risk for this patient, Mony Wagner, and determined t hat she would benefit from observation care.
[2021-12-16 00:29] LABS: Appearance Urine Clear (Clear); Bilirubin Urine 1+ (Negative); Blood Urine Negative (Negative); Color Urine Yellow (Yellow); Glucose Urine UA Negative (Negative); Ketones Urine 4+ mg/dL (Negative); Leukocyte Esterase Ur Negative LEU/UL (Negative); Nitrate Urine Negative (Negative); Protein Urine Trace mg/dL (Negative); Specific Grav Ur 1.025 (1.001-1.035)
[2021-12-16 01:04] LABS: Bacteria Urine Trace /hpf; Mucus Urine Rare /lpf; Squamous Epithelial Cell Urine Occasional /hpf (Few)
[2021-12-16 01:15] LABS: Add Urine Microscopic? YES
== END 2021-12-16 01:15 | disposition home or self-care (01) ==
LOC: ANHOBOP 23:25 → ANHLDR 23:26
PROVIDERS: Admitting Provider Obstetrics & Gynecology; PCP Physician Assistant; Visit Provider Obstetrics & Gynecology
DX: O36.8130 Decreased fetal movements, third trimester, not applicable or unspecified (principal); O47.03 False labor before 37 completed weeks of gestation, third trimester; Z3A.36 36 weeks gestation of pregnancy
CPT/HCPCS: 81001; 87086; 96372; G0378; G0379; J3105

== ENCOUNTER 2021-12-22 20:25 | Observation (INO) | payer OTHER, SELFPAY ==
[2021-12-22 20:30] VITALS: BMI 32.7
--- NOTE | 2021-12-22 22:38 | OBADM ---
This patient, Mony Wagner, admitted to the OB room Labor/Delivery/Recovery 102 for observation. Patient/family oriented to hospital policies and general routines including ID bracelet, bed and alarms, visiting hours, pain management, procedures, bathroom and other care routines, personal items, smoking policy, room service/diet, and visiting hours. Patient/Family are encouraged to report perceived risks to care and to ask questions if they do not understand what they are told or what they should do.
--- NOTE | 2022-01-01 09:02 | PM.OBTRLD ---
OB - Triage/Final Diagnosis Visit Information Comments/Additional reasons for admission: I have assessed the risk for this patient, Mony Wagner, and determined that she would benefit from observation care. Final Diagnosis (1) Vaginal discharge during : Code(s): O26.899 - Other specified related conditions, unspecified trimester; N89.8 - Other specified noninflammatory disorders of vagina Status: Acute
== END 2021-12-22 22:57 | disposition home or self-care (01) ==
PROVIDERS: Admitting Provider Obstetrics & Gynecology; PCP Physician Assistant; Visit Provider Obstetrics & Gynecology
DX: O26.893 Other specified pregnancy related conditions, third trimester (principal); N89.8 Other specified noninflammatory disorders of vagina; Z3A.37 37 weeks gestation of pregnancy
CPT/HCPCS: G0378; G0379

== ENCOUNTER 2021-12-29 12:07 | Observation (INO) | payer OTHER, SELFPAY ==
[2021-12-29 12:15] VITALS: BMI 32.7
[2021-12-29 13:15] VITALS: BP 131/85; PULSE 84
--- NOTE | 2021-12-31 06:52 | PM.OBTRLD ---
OB - Triage/Final Diagnosis Visit Information Reason for evaluation: threatened labor Comments/Additional reasons for admission: I have assessed the risk for this patient, Mony Wagner, and determined that she would benefit from observation care.
== END 2021-12-29 13:44 | disposition home or self-care (01) ==
PROVIDERS: Admitting Provider Obstetrics & Gynecology; PCP Physician Assistant; Visit Provider Obstetrics & Gynecology
DX: O47.1 False labor at or after 37 completed weeks of gestation (principal); O36.8130 Decreased fetal movements, third trimester, not applicable or unspecified; Z3A.38 38 weeks gestation of pregnancy
CPT/HCPCS: G0378; G0379

== ENCOUNTER 2021-12-30 02:55 | Inpatient (IN) | payer OTHER, SELFPAY ==
[2021-12-30] VITALS (162 sets, daily range): BP systolic 109–163; BP diastolic 52–128; PULSE 58–224; RESP 16–18; TEMP 36.5–36.9; O2SAT 88–100; BMI 32.6
[2021-12-30 03:35] LABS: Basophils Percent Auto 0.3 % (0.2-1.2); Eosinophils Absolute Auto 0.1 K/mm3 (0-0.3); Eosinophils Percent Auto 0.6 % (0-4.4); Hematocrit 28.7 % (37.0-47.0); Hemoglobin 9.9 g/dL (12.0-15.0); Immature Granulocyte Absolute 0.05 K/mm3 (0.00-0.031); Immature Granulocyte Percent A 0.4 % (0-0.5); Lymphocytes Absolute Auto 2.01 K/mm3 (0.9-3.2); Lymphocytes Percent Auto 17.3 % (18.3-44.2); Mean Corpuscular HGB Conc 34.5 g/dl (32-36); Mean Corpuscular Hemoglobin 30.2 pg (26-34); Mean Corpuscular Volume 87.5 fl (80-100); Monocytes Absolute Auto 0.7 K/mm3 (0.1-0.6); Monocytes Percent Auto 5.9 % (2.6-8.5); Neutrophils Absolute Auto 8.8 K/mm3 (1.3-6.7); Neutrophils Percent Auto 75.5 % (45.5-73.1); Platelet Count Result 267 k/mm3 (150-375); Red Blood Count 3.28 M/mm3 (4.2-5.4); Red Cell Distribution Width 13.1 % (11.5-14.5); White Blood Count 11.6 K/mm3 (4.5-10.0)
[2021-12-30] MEDS: LACTATED RINGERS 1,000 ML 125 ML IV CONT ×3 (03:57→05:41)
--- NOTE | 2021-12-30 04:02 | LDADM ---
This patient, Mony Wagner, was admitted to Labor/Delivery/Recovery 106 on 12/30/21 at 02:55. Plans for labor, pain management and were discussed with patient. Patient/family oriented to hospital policies and general routines including ID bracelet, bed and alarms, visiting hours, pain management, procedures, bathroom and other care routines, personal items, smoking policy, room service/diet and guest tray routines, infant security routines, and visiting hours. Patient/Family are encouraged to report perceived risks to care and to ask questions if they do not understand what they are told or what they should do. See OBIX for further documentation.
--- NOTE | 2021-12-30 04:08 | P.PNAN_ITS ---
Anes - Eval Pre Procedure Procedure: labor epidural Date/Time: 12/30/21 04:08 Pre Op Diagnosis: Leaking Patient Data Age: 21 Gender: F Height: Weight: Last Vital Signs Pulse 65 12/30/21 04:01 BP 129/95 H 12/30/21 04:01 Allergies Allergy/AdvReac Type Severity Reaction Status Date / Time latex Allergy Rash Verified 12/14/21 14:47 Home Medications Medication Instructions Recorded Confirmed Type ondansetron HCl 4 mg tablet 4 tablet PO PRN 09/06/21 12/29/21 History Laboratory Tests 12/30/21 12/30/21 03:28 03:28 WBC 11.6 K/mm3 H K/mm3 (4.5-10.0) RBC 3.28 M/mm3 L M/mm3 (4.2-5.4) Hgb 9.9 g/dL L g/dL (12.0-15.0) Hct 28.7 % L % (37.0-47.0) MCV 87.5 fl fl (80-100) MCH 30.2 pg pg (26-34) MCHC 34.5 g/dl g/dl (32-36) RDW 13.1 % % (11.5-14.5) Plt Count 267 k/mm3 k/mm3 (150-375) MPV 10.0 fl fl (7.4-10.4) Immature Gran % (Auto) 0.4 % % (0-0.5) Neut % (Auto) 75.5 % H % (45.5-73.1) Lymph % (Auto) 17.3 % L % (18.3-44.2) Dixon % (Auto) 5.9 % % (2.6-8.5) Eos % (Auto) 0.6 % % (0-4.4) Baso % (Auto) 0.3 % % (0.2-1.2) Lymph # (Auto) 2.01 K/mm3 K/mm3 (0.9-3.2) Dixon # (Auto) 0.7 K/mm3 H K/mm3 (0.1-0.6) Eos # (Auto) 0.1 K/mm3 K/mm3 (0-0.3) Baso # (Auto) 0.0 K/mm3 K/mm3 (0.0-0.1) Abs Immat Gran (auto) 0.05 K/mm3 H K/mm3 (0.00-0.031) Absolute Neuts (auto) 8.8 K/mm3 H K/mm3 (1.3-6.7) Absolute Nucleated RBC 0.0 K/mm3 K/mm3 (0.0-0.012) Nucleated RBC % 0.0 % % (0.0-0.2) RPR Pending Patient hx anesthesia problems: none Family hx anesthesia problems: none Results Review: All pre-operative results and documents have been reviewed as part of the pre- operative evaluation. [facility] Past Medical History Medical History Anxiety Craniosynostosis Depression Endometriosis Hip dysplasia Migraine Family History Family History Mother Chronic obstructive pulmonary disease Asthma Social History Social History Smoking status: Current every day smoker Alcohol intake: never Substance use: current Substance use type: marijuana Other substance usage details: Daily Last use: 12/12/21 Spiritual care concerns: No Exam Day of Procedure 12/30/21 04:08 Patient weight: obese Heart: regular rate and rhythm Lungs: normal air movement Airway: Mallampati scale Neurological: alert and oriented
--- NOTE | 2021-12-30 04:25 | PM.IMHP ---
H&P: HPI History of Present Illness Date/Time: 12/30/21 04:25 Chief Complaint: labor at term Narrative: this is a 20-year-old 1 para 0 whose last menstrual period was in March of 2021, EDC is 01/11/2022, confirmed by 7 week ultrasound presents with rupture membranes at term. Her has been uncomplicated. She is negative for B strep PMFSH Past Medical History Medical History Anxiety Craniosynostosis Depression Endometriosis Hip dysplasia Migraine Family History Family History Mother Chronic obstructive pulmonary disease Asthma Social History Social History Smoking status: Current every day smoker Alcohol intake: never Substance use: current Substance use type: marijuana Other substance usage details: Daily Last use: 12/12/21 Spiritual care concerns: No Meds Home Medications and Allergies Home Medications Medication Instructions Recorded Confirmed Type ondansetron HCl 4 mg tablet 4 tablet PO PRN 09/06/21 12/29/21 History Allergies Allergy/AdvReac Type Severity Reaction Status Date / Time latex Allergy Rash Verified 12/14/21 14:47 Vital Signs Vital Signs - 24 hr 12/30/21 03:14 12/30/21 03:17 12/30/21 03:31 Pulse Rate 84 77 71 Blood Pressure 142/104 H 156/89 H 139/91 H Pulse Oximetry 12/30/21 04:01 12/30/21 04:14 12/30/21 04:16 Pulse Rate 65 68 75 Blood Pressure 129/95 H 135/83 131/88 Pulse Oximetry 100 12/30/21 04:18 12/30/21 04:19 12/30/21 04:21 Pulse Rate 82 64 71 Blood Pressure 123/90 127/96 H 132/84 Pulse Oximetry 100 12/30/21 04:23 12/30/21 04:24 Pulse Rate 66 Blood Pressure 137/79 Pulse Oximetry 100 Exam Const: General: cooperative and healthy appearing Orientation/consciousness: oriented to person, oriented to place and oriented to time Resp: Effort & Inspection: normal respiratory effort Cardio: Rate: regular rate Rhythm: regular rhythm Heart sounds: S1 normal heart sound present and S2 normal heart sound present GI: Inspection: normal to inspection Auscultation: normal bowel sounds : Speculum Exam - Vagina: normal appearance of the vagina Speculum Exam - Cervix: normal appearance of the cervix and Cervical os open ( cervix 3cm with clear fluid. FHTs reassuring) H&P: Results Labs Labs: Short CBC 12/30/21 Range/Units 03:28 WBC 11.6 H (4.5-10.0) K/mm3 Hgb 9.9 L (12.0-15.0) g/dL Hct 28.7 L (37.0-47.0) % Plt Count 267 (150-375) k/mm3 Assessment and Plan Assessment and plan (1) Term : Code(s): Z34.90 - Encounter for supervision of normal , unspecified, unspecified trimester Status: Acute Plan spontaneous vaginal delivery is expected. She is an epidural candidate
[2021-12-30 07:58] LABS: Rapid Plasma Reagin Non-Reactive (NonReactive)
[2021-12-30] MEDS: OXYTOCIN 30 UNITS/NS 500 ML 30 UNITS/500 ML BAG IV CONT (08:00)
[2021-12-30] MEDS: ONDANSETRON INJ 4 MG/2 ML VIAL IV PUSH (12:20)
--- NOTE | 2021-12-30 12:33 | PM.OBPNLAB ---
Pain Control Date/time seen: 12/30/21 12:33 Pain control: tolerating well and epidural Comments: pushing Pelvic Exam Dilation (cm): 10 station: +2
--- NOTE | 2021-12-30 13:38 | PM.OBPRVD ---
OB - Delivery Note Procedure Delivery date: 12/30/21 Induction method: None Delivery augmentation: Pitocin Delivery monitor: External FHT Route of delivery: Episiotomy description: None Laceration Description: None Specimen: No Quantitative Blood Loss (ml): 59 Anesthesia type: Epidural Disposition: Floor [place] Baby Date of : 12/30/21 Time of : 13:30 Weeks of gestation at delivery: 38 gender: Female presentation: vertex position: Right Occiput Anterior Placenta delivery description: Spontaneous Cord Vessel Description: 3 Vessels and Delayed Cord Clamping score one minute: 8 score five minutes: 8
--- NOTE | 2021-12-30 16:15 | OBPPTRN ---
Patient transferred to post room # 283 via wheelchair accompanied by fob and . PT introductions made and plan of care discussed per post , pain management, breast feeding, daily care activities. PT and significant other both recipients of such instructions and no barriers to learning identified at this time. PT received instructions this shift via one to one discussion, mom baby care guide and demonstrations. Oriented to unit, room, information board, rooming in, admission packet and security measures. Patient verbalizes understanding.
[2021-12-30] MEDS: POLYSACCHARIDE IRON COMPLEX 150 MG CAPSULE PO (18:07)
[2021-12-30] MEDS: DOCUSATE SODIUM 100 MG CAPSULE PO (18:07)
[2021-12-30] MEDS: LANOLIN (LANSINOH) 7.5 GM CREAM 1 APPLIC TOPICAL (18:08)
[2021-12-30 18:47] LABS: Barbiturate Screen Urine Negative (Negative); Benzodiazepines Screen Urine Negative (Negative)
[2021-12-30 18:48] LABS: Amphetamine Screen Urine Negative (Negative); Cannabinoid Screen Urine Positive (Negative); Cocaine Screen Urine Negative (Negative); Opiate Screen Urine Negative (Negative); Phencyclidine Screen Urine Negative (Negative)
[2021-12-30 18:55] LABS: Methadone Screen Urine Negative (Negative)
[2021-12-31 05:29] LABS: Hematocrit 21.4 % (37.0-47.0)
[2021-12-31 05:36] LABS: Hemoglobin 7.1 g/dL (12.0-15.0)
[2021-12-31] MEDS: IBUPROFEN 600 MG TABLET PO (06:58)
[2021-12-31] MEDS: DOCUSATE SODIUM 100 MG CAPSULE PO (07:00)
[2021-12-31] MEDS: MULTIVIT/MIN/PREN/FOL AC/IRON TABLET 1 TAB PO (07:00)
[2021-12-31] MEDS: POLYSACCHARIDE IRON COMPLEX 150 MG CAPSULE PO (07:00)
[2021-12-31] MEDS: ACETAMINOPHEN 325 MG TABLET 650 MG PO (07:00)
--- NOTE | 2021-12-31 07:53 | WPDANLDPN2 ---
Anes-Prog Note L&D Date/Time: 12/31/21 07:53 Comfortable throughout: labor and delivery Neuraxial method: epidural Epidural/Spinal procedure site: clean & non-tender Neuro status: Neuro function grossly intact. Cardiovascular status: normal Respiratory status: normal Airway patency: baseline Mental status: baseline Post-Op hydration status: normal Vital Signs: Last Vital Signs Temp 97.7 F 12/30/21 18:50 Pulse 79 12/30/21 18:50 Resp 16 12/30/21 18:50 BP 109/73 12/30/21 18:50 Pulse Ox 97 12/30/21 16:30 O2 Del Method Room Air 12/30/21 16:30 Pain score (VAS): 0 I/O: Intake & Output 12/30/21 12/30/21 12/31/21 15:59 23:59 07:59 Intake Total 980 Balance 980 Post-procedural complaints: none Patient feedback: Patient satisfied with anesthetic care.
[2021-12-31 08:05] VITALS: BP 122/72; PULSE 81; RESP 16; TEMP 36.7; O2SAT 99
--- NOTE | 2021-12-31 08:16 | PM.DS ---
DS: Admitting Diagnosis Discharge Date 12/31/2021 Admitting Diagnosis term DS: Discharge Diagnosis Discharge Diagnosis (1) Term : Code(s): Z34.90 - Encounter for supervision of normal , unspecified, unspecified trimester Status: Acute DS: Summary Hospital Course Reason for hospitalization: labor Hospital Course: patient was admitted at term in active labor. She underwent spontaneous vaginal delivery on 12/30/2021. Her hospital course was unremarkable. She remained afebrile. She was up, voiding without difficulty, ambulating, bottle feeding, and generally without complaints. Time Spent with Patient Time attestation: Total time spent providing and/or coordinating discharge services: Exam Const: General: cooperative, healthy appearing and comfortable Nutritional Appearance: average body habitus Orientation/consciousness: oriented to person, oriented to place and oriented to time DS: Data Data Completed and Pending Labs on day of discharge: Labs from last 24 hours 12/31/21 12/30/21 05:22 18:06 Hgb 7.1 L Hct 21.4 L Urine Opiates Screen Negative Urine Methadone Screen Negative Ur Barbiturates Screen Negative Ur Phencyclidine Scrn Negative Ur Amphetamine Screen Negative U Benzodiazepines Scrn Negative Urine Cocaine Screen Negative U Cannabinoids Screen Positive A Discharge Plan Discharge Attending physician on discharge: Edgar Alvarez Discharging Clinician: Edgar Alvarez Patient Disposition: Home, Self-Care Activity: may shower, no straining and pelvic rest Diet: heart healthy Wound Care Instructions: follow printed instructions Patient Instructions: Antibiotic Form Stand Alone Forms: General Discharge Information Follow-up/Referrals: Edgar Alvarez MD [Physician] - Discharge Medications: Continued ondansetron HCl 4 mg tablet 4 tablet PO PRN Date of admission: 12/30/21 02:55 Primary Care Provider: RosasEdgar Admitting Provider: Edgar Alvarez Attending physician on admission: Edgar Alvarez Condition: Stable
[2021-12-31] MEDS: TETANUS,DIPHTHERIA,AC PERTUSSIS ADULT (0.5 ML) BOOSTRIX IM (11:42)
[2021-12-31 12:00] VITALS: BP 132/83; PULSE 83; RESP 16; TEMP 36.8; O2SAT 100
[2022-01-03 10:59] VITALS: BP 144/94; PULSE 67; RESP 20; TEMP 37.2; O2SAT 100
== END 2021-12-31 15:23 | disposition home or self-care (01) | DRG 560 ==
LOC: ANHLDR 03:11 → ANHOB2 16:27
PROVIDERS: Admitting Provider Obstetrics & Gynecology; PCP Physician Assistant; Visit Provider Obstetrics & Gynecology
DX: O76 Abnormality in fetal heart rate and rhythm complicating labor and delivery (principal); O99.334 Smoking (tobacco) complicating childbirth; F17.210 Nicotine dependence, cigarettes, uncomplicated; Z3A.38 38 weeks gestation of pregnancy; Z37.0 Single live birth; Z23 Encounter for immunization
CPT/HCPCS: 36415; 80307; 84112; 85014; 85018; 85025; 86592; 86850; 86900; 86901; 90471; 90686; 90715; A9270; G0008; G0378; G0379; J2405; J2590; J2795; J7120

== ENCOUNTER 2022-01-03 11:27 | Outpatient (CLI) | payer OTHER, SELFPAY ==
[2022-01-03] VITALS (8 sets, daily range): BP systolic 135–153; BP diastolic 81–93; PULSE 60–90
--- NOTE | 2022-01-03 12:05 | PM.OBTRLD ---
OB - Triage/Final Diagnosis Visit Information Date of evaluation: 01/03/22 Reason for evaluation: other ( hypertension) Comments/Additional reasons for admission: I have assessed the risk for this patient, Mony Anna RamosWagner, and determined that she would benefit from observation care. Evaluation Vital signs: Vital Signs - 24 hr 01/03/22 11:45 01/03/22 12:00 Pulse Rate 61 60 Blood Pressure 145/92 H 145/81 H
[2022-01-03 12:26] LABS: Basophils Percent Auto 0.3 % (0.2-1.2); Eosinophils Absolute Auto 0.3 K/mm3 (0-0.3); Eosinophils Percent Auto 3.1 % (0-4.4); Hematocrit 23.1 % (37.0-47.0); Hemoglobin 7.5 g/dL (12.0-15.0); Immature Granulocyte Absolute 0.08 K/mm3 (0.00-0.031); Immature Granulocyte Percent A 0.9 % (0-0.5); Lymphocytes Absolute Auto 1.79 K/mm3 (0.9-3.2); Mean Corpuscular HGB Conc 32.5 g/dl (32-36); Mean Corpuscular Hemoglobin 29.9 pg (26-34); Mean Platelet Volume 9.4 fl (7.4-10.4); Monocytes Absolute Auto 0.4 K/mm3 (0.1-0.6); Monocytes Percent Auto 4.4 % (2.6-8.5); Neutrophils Absolute Auto 6.8 K/mm3 (1.3-6.7); Neutrophils Percent Auto 72.3 % (45.5-73.1); Platelet Count Result 313 k/mm3 (150-375); Red Blood Count 2.51 M/mm3 (4.2-5.4); Red Cell Distribution Width 13.5 % (11.5-14.5); White Blood Count 9.4 K/mm3 (4.5-10.0)
[2022-01-03] MEDS: LABETALOL HCL 100 MG TABLET 200 MG PO (12:53)
[2022-01-03 12:59] LABS: Alanine Aminotransferase 27 U/L (6-35); Albumin Level 3.4 g/dL (3.5-5.1); Alkaline Phosphatase 127 U/L (38-126); Anion Gap 9 mmol/L (8-16); Aspartate Amino Transferase 33 U/L (14-36); Bilirubin,Total 0.3 mg/dL (0.2-1.3); Blood Urea Nitrogen 5 mg/dL (7-17); Calcium 8.1 mg/dL (8.4-10.2); Carbon Dioxide 27 mmol/L (22-30); Chloride 104 mmol/L (98-107); Estimated Glomerular Filt Rate > 60; Glucose 73 mg/dL (65-110); Potassium 2.8 mmol/L (3.4-5.0); Sodium 140 mmol/L (137-145); Uric Acid 4.7 mg/dL (2.5-7.5)
[2022-01-03] MEDS: POTASSIUM CHLORIDE 20 MEQ TABLET 40 MEQ PO (13:46)
--- NOTE | 2022-01-03 15:03 | PC.NURSE ---
Dr Castaneda notified of BP's and Potassium level, orders received.
== END 2022-01-03 13:50 | disposition home or self-care (01) ==
LOC: ANHOBOP 11:29 → ANHOBPP 11:30
PROVIDERS: PCP Physician Assistant; Visit Provider Obstetrics & Gynecology
DX: O13.9 Gestational [pregnancy-induced] hypertension without significant proteinuria, unspecified trimester (principal); Z3A.00 Weeks of gestation of pregnancy not specified
CPT/HCPCS: 36415; 80053; 84550; 85025; 99199; A9270

== ENCOUNTER 2023-06-09 17:25 | Outpatient (CLI) | payer OTHER, SELFPAY ==
[2023-06-09 18:09] LABS: Monoscreen Negative (Negative); Negative Monotest Control Negative (Negative); Positive Monotest Control Positive (Positive)
== END 2023-06-09 17:26 | disposition home or self-care (01) ==
LOC: CHSLAB 17:27
PROVIDERS: PCP Family Medicine; Visit Provider Family Medicine
DX: J02.9 Acute pharyngitis, unspecified (principal)
CPT/HCPCS: 36415; 86308

== ENCOUNTER 2023-08-24 16:57 | Outpatient (CLI) | payer OTHER, SELFPAY ==
[2023-08-24 17:15] LABS: Basophils Absolute Auto 0.03 K/mm3 (0.00-0.10); Basophils Percent Auto 0.4 % (0.0-1.0); Eosinophils Absolute Auto 0.23 K/mm3 (0.02-0.50); Eosinophils Percent Auto 2.8 % (1.0-6.0); Hematocrit 41.1 % (35.0-49.0); Hemoglobin 13.9 g/dL (12.0-15.0); Immature Granulocyte Absolute 0.01 K/mm3 (0.00-0.00); Immature Granulocyte Percent A 0.1 % (0.0-0.0); Lymphocytes Absolute Auto 2.43 K/mm3 (1.10-4.50); Lymphocytes Percent Auto 29.5 % (18.0-42.0); Mean Corpuscular HGB Conc 33.8 g/dL (32-36); Mean Corpuscular Hemoglobin 28.8 pg (27.0-31.0); Mean Corpuscular Volume 85.3 fL (78.0-102.0); Mean Platelet Volume 9.6 fl (9.2-11.8); Monocytes Absolute Auto 0.37 K/mm3 (0.10-0.90); Monocytes Percent Auto 4.5 % (2.0-11.0); Neutrophils Absolute Auto 5.18 K/mm3 (1.70-7.20); Neutrophils Percent Auto 62.7 % (50.0-70.0); Platelet Count Result 223 K/mm3 (150-420); Red Blood Count 4.82 M/mm3 (4.20-5.40); Red Cell Distribution Width 13.8 % (11.6-14.4); White Blood Count 8.3 K/mm3 (4.8-10.8)
[2023-08-24 18:00] LABS: Folic Acid 7.3 ng/mL (8.6->20); Iron 62 ug/dL (50-170); Percent Iron Saturation 19 % (12-57); Thyroid Stimulating Hormone 0.64 uIU/mL (0.36-3.74); Vitamin B12 266 pg/mL (193-986)
[2023-08-26 03:04] LABS: Vitamin D 25 Hydroxy 26 ng/mL (30-100)
== END 2023-08-24 16:58 | disposition home or self-care (01) ==
LOC: CHSLAB 16:59
PROVIDERS: PCP Family Medicine; Visit Provider Family Medicine
DX: R23.3 Spontaneous ecchymoses (principal); G47.00 Insomnia, unspecified; F31.9 Bipolar disorder, unspecified
CPT/HCPCS: 36415; 82306; 82607; 82746; 83540; 83550; 84443; 85025

== ENCOUNTER 2023-10-10 10:42 | Outpatient (CLI) | payer OTHER, SELFPAY ==
--- NOTE | ~2023-10-10 | XR_ITS ---
AP view of the pelvis Clinical history: Pain Findings: No acute fracture or dislocation is seen. Osseous alignment is anatomic. Bilateral hip and SI joint spaces are preserved. Soft tissues are unremarkable. Impression: No significant abnormality is seen. Reviewed, dictated and finalized at location M. Impression: No significant abnormality is seen.
--- NOTE | ~2023-10-10 | XR_ITS ---
Lumbosacral Spine: AP and lateral views Clinical History: Pain Findings: The normal lordotic curve is maintained. The vertebral bodies and posterior elements are i ntact. The intervertebral disc spaces are preserved. The sacroiliac joints are normally outlined. Impression: No significant abnormality. Reviewed, dictated and finalized at [facility]. Impression: No significant abnormality.
== END 2023-10-10 10:43 | disposition home or self-care (01) ==
LOC: CHSIMG 10:44
PROVIDERS: PCP Family Medicine; Visit Provider Family Medicine
DX: M54.40 Lumbago with sciatica, unspecified side (principal)
CPT/HCPCS: 72100; 72170

== ENCOUNTER 2025-02-10 13:38 | Observation (INO) | payer OTHER, SELFPAY ==
[2025-02-10] VITALS (52 sets, daily range): BP systolic 96–156; BP diastolic 46–88; PULSE 74–194; TEMP 36.4–36.6; O2SAT 86–100; BMI 31.8
--- NOTE | ~2025-02-10 | US_ITS ---
EXAMINATION: US OB limited, 02/10/2025 16:30 [employer]ER HISTORY: abdominal pain placenta check Comparison: None Technique: Ramos-scale and color Doppler images were obtained. Findings: Single live intrauterine corresponding to 31 weeks and 5 days in cephalic presentation and longitudinal lie, heart rate 158, SHAUN 14.9. The placenta is located posteriorly and appears unremarkable IMPRESSION: Single live intrauterine detailed above. No acute process. Reviewed, dictated and finalized at location P. [employer] ROOM OFFICER IMPRESSION: Single live intrauterine detailed above. No acute process .
--- NOTE | 2025-02-10 13:38 | OBADM ---
This patient, Mony Wagner, admitted to the OB room OB Post 116 for observation. Patient/family oriented to hospital policies and general routines including ID bracelet, bed and alarms, visiting hours, pain management, procedures, bathroom and other care routines, personal items, smoking policy, room service/diet, and visiting hours. Patient/Family are encouraged to report perceived risks to care and to ask questions if they do not understand what they are told or what they should do.
--- NOTE | 2025-02-10 13:45 | PC.NURSE ---
pt reports harley since 0200 this AM. Pt states that they were Jaxson Larry at first but continued to get stronger through out the day. Pt reports harley every 4 min for the last couple of hours and that her belly hurts. Pt belly palpates soft. Pt does report lifting her daughter who is heavy quite often.
[2025-02-10 14:18] LABS: Add Urine Microscopic? YES; Appearance Urine Cloudy (Clear); Glucose Urine UA Negative (Negative); Leukocyte Esterase Ur Trace LEU/UL (Negative); Nitrate Urine Negative (Negative); Non Pathogenic Casts 0-2; Specific Grav Ur 1.018 (1.001-1.035)
[2025-02-10] MEDS: LACTATED RINGERS 1,000 ML 100 ML IV CONT ×3 (14:35→19:56)
[2025-02-10] MEDS: TERBUTALINE SULFATE 1 MG/ML VIAL 0.25 MG SUB-Q ×2 (14:37→15:39)
--- NOTE | 2025-02-10 15:19 | PC.NURSE ---
RN x2 in with the pt. Pt fiercely trembling while telling us she is in pain and needs to go to the bathroom. Pt return from bathroom to the bed and cervix was rechecked by Opal Falcon RN. Cervix unchanged. called and notified of the events. Order received to check CBC, CMP and ultrasound.
[2025-02-10 16:24] LABS: Hematocrit 28.0 % (37.0-47.0); Hemoglobin 9.5 g/dL (12.0-15.0); Immature Granulocyte Percent A 0.5 % (0-0.5); Lymphocytes Absolute Auto 2.05 K/mm3 (0.9-3.2); Mean Corpuscular HGB Conc 33.9 g/dl (32-36); Mean Corpuscular Hemoglobin 30.4 pg (26-34); Mean Corpuscular Volume 89.5 fl (80-100); Nucleated Red Blood Cells Absolute Auto 0.000 K/mm3 (0.0-0.012); Nucleated Red Blood Cells Perc 0.0 % (0.0-0.2); Platelet Count Result 200 k/mm3 (150-375); Red Blood Count 3.13 M/mm3 (4.2-5.4); White Blood Count 11.7 K/mm3 (4.5-10.0)
[2025-02-10 16:37] LABS: Alanine Aminotransferase 20 U/L (6-35); Albumin Level 3.4 g/dL (3.5-5.1); Alkaline Phosphatase 123 U/L (38-126); Anion Gap 8 mmol/L (4-12); Aspartate Amino Transferase 19 U/L (14-36); Bilirubin,Total 0.5 mg/dL (0.2-1.3); Blood Urea Nitrogen 2 mg/dL (7-17); Calcium 8.2 mg/dL (8.4-10.2); Carbon Dioxide 18 mmol/L (22-30); Chloride 108 mmol/L (98-107); Estimated CRCL calculation 143 ml/min; Estimated Glomerular Filt Rate > 60; Glucose 100 mg/dL (65-110); Potassium 2.5 mmol/L (3.4-5.0); Sodium 134 mmol/L (137-145); Total Protein 6.2 g/dL (6.3-8.2)
--- NOTE | 2025-02-10 17:02 | PC.NURSE ---
pt called out, RN found pt with emesis bag with 200ml in the bag. Pt refusing Zofran at this time, saying she no longer feels nauseous. Pt no longer states she feels more comfortable and at this time has no pain.
[2025-02-10] MEDS: KCL 20 MEQ/SW 100 ML 100 ML 50 MEQ IVPB (17:12)
--- NOTE | 2025-02-10 17:53 | P.HP_ITS ---
H&P: HPI History of Present Illness Date/Time: 02/10/25 17:53 Chief Complaint: Abdominal pain and questionable contractions Narrative: 24 year 2 para 1 at 30 weeks gestation who ER of contractions contract ions were seen she received a couple doses of terbutaline is significantly she was seen last week afebrile hospital transferred to [facility] in [place] at which time she was watched sent she continues did have some pain and she is hypokalemic year she is admitted for IV hydration and replacement of potassium and treatment of contractions Review of Systems Review of Systems: All systems reviewed & are unremarkable except as noted in HPI and below Constitutional: Constitutional: Reports no additional constitutional complaints Eyes: Eyes: Reports no additional eye complaints ENT: Reports system reviewed and no additional complaints, except as documented Cardiovascular: Cardiovascular: Reports no additional cardiovascular complaints Respiratory: Respiratory: Reports no additional respiratory complaints Gastrointestinal: Gastrointestinal: Reports no additional gastrointestinal complaints Genitourinary: Comments: uterine contractions at 29 weeks normal . Musculoskeletal: Musculoskeletal: Reports no additional musculoskeletal complaints Integumentary/Breasts: Skin/Breast: Reports system reviewed and no additional complaints, except as docu Neurologic: Reports system reviewed and no additional complaints, except as documented Psychiatric: Psychiatric: Reports no additional psychiatric complaints Endocrine: Endocrine: Reports no additional endocrine complaints Hematologic/Lymphatic: Hematologic/Lymphatic: Reports no additional hematologic/lymphatic complaints Allergic/Immunologic: Allergic/Immunologic: Reports no additional allergic/immunologic complaints [facility] Past Medical History Medical History Craniosynostosis Endometriosis Migraine Depression Anxiety Hip dysplasia Family History Family History Mother Chronic obstructive pulmonary disease Asthma Social History Social History Smoking status: Current every day smoker Tobacco type: cigarettes Alcohol intake: never Substance use: current Substance use type: marijuana Other substance usage details: Daily Last use: 12/12/21 Lack of Transportation: YES Lack of Food: Never True Current Housing: I Have Housing Concerned About Future Housing: No Difficulty Paying Gas/Electric Bills: No Difficulty Paying for Meds: No Currently Unemployed: No Education: High School Diploma/GED Difficulty w/ Childcare or Family Care: No Living arrangements: with family Spiritual care concerns: No Meds Home Medications and Allergies Home Medications ?Medication ?Instructions ?Recorded ?Confirmed ?Type ondansetron HCl 4 mg tablet 4 tablet PO PRN 09/06/21 1 04/12/24 History Allergies Allergy/AdvReac Type Severity Reaction Status Date / Time latex Allergy Rash Verified 12/30/21 04:33 Vital Signs Vital Signs - 24 hr 02/10/25 13:57 02/10/25 14:00 02/10/25 14:16 Temperature 97.8 F Pulse Rate 81 85 Blood Pressure 96/75 L 132/72 Pulse Oximetry 02/10/25 14:30 02/10/25 14:37 02/10/25 14:42 Temperature Pulse Rate 82 Blood Pressure 133/84 Pulse Oximetry 99 100 02/10/25 14:46 02/10/25 14:47 02/10/25 14:52 Temperature Pulse Rate 80 Blood Pressure 124/53 L Pulse Oximetry 100 100 02/10/25 14:57 02/10/25 15:00 02/10/25 15:02 Temperature Pulse Rate 84 Blood Pressure 128/60 Pulse Oximetry 99 100 02/10/25 15:07 02/10/25 15:21 02/10/25 15:26 Temperature Pulse Rate Blood Pressure Pulse Oximetry 100 86 L 100 02/10/25 15:31 02/10/25 15:36 02/10/25 15:41 Temperature Pulse Rate 89 Blood Pressure 116/80 Pulse Oximetry 100 100 100 02/10/25 15:45 02/10/25 15:46 02/10/25 15:51 Temperature Pulse Rate 103 H Blood Pressure 156/88 H Pulse Oximetry 100 100 02/10/25 15:52 02/10/25 15:57 02/10/25 16:02 Temperature Pulse Rate Blood Pressure Pulse Oximetry 100 100 96 02/10/25 16:07 02/10/25 16:12 02/10/25 16:18 Temperature Pulse Rate Blood Pressure Pulse Oximetry 100 100 99 02/10/25 16:23 02/10/25 16:28 02/10/25 16:47 Temperature Pulse Rate Blood Pressure Pulse Oximetry 100 100 100 02/10/25 16:52 02/10/25 16:57 02/10/25 17:02 Temperature Pulse Rate Blood Pressure Pulse Oximetry 99 100 100 02/10/25 17:07 02/10/25 17:12 02/10/25 17:17 Temperature Pulse Rate Blood Pressure Pulse Oximetry 100 100 100 02/10/25 17:22 02/10/25 17:27 02/10/25 17:32 Temperature Pulse Rate Blood Pressure Pulse Oximetry 99 98 100 02/10/25 17:37 02/10/25 17:38 02/10/25 17:39 Temperature Pulse Rate Blood Pressure Pulse Oximetry 100 100 95 02/10/25 17:43 02/10/25 17:48 02/10/25 17:49 Temperature Pulse Rate Blood Pressure Pulse Oximetry 91 100 100 Exam Const: General: cooperative, healthy appearing and comfortable Nutritional Appearance: overweight Orientation/consciousness: oriented to person, oriented to place and oriented to time HENMT: Head: normal to inspection Resp: Effort & Inspection: normal respiratory effort Cardio: Rate: regular rate Rhythm: regular rhythm Heart sounds: S1 normal heart sound present and S2 normal heart sound present GI: Inspection: normal to inspection (Soft gravid uterus) : External Female Exam: normal external appearance Speculum Exam - Vagina: normal appearance of the vagina Speculum Exam - Cervix: normal appearance of the cervix H&P: Results Labs Labs: Short CBC 02/10/25 Range/Units 16:15 WBC 11.7 H (4.5-10.0) K/mm3 Hgb 9.5 L (12.0-15.0) g/dL Hct 28.0 L (37.0-47.0) % Plt Count 200 (150-375) k/mm3 BMP 02/10/25 16:15 Sodium 134 L Potassium 2.5 L* Chloride 108 H Carbon Dioxide 18 L BUN 2 L Creatinine 0.44 L Glucose 100 Calcium 8.2 L Liver Function 02/10/25 Range/Units 16:15 Total Bilirubin 0.5 (0.2-1.3) mg/dL AST 19 (14-36) U/L ALT 20 (6-35) U/L Alkaline Phosphatase 123 (38-126) U/L Albumin 3.4 L (3.5-5.1) g/dL Urine 02/10/25 Range/Units 14:08 Urine Color Yellow (Yellow) Urine Appearance Cloudy H (Clear) Urine pH 8.0 (5.0-9.0) Ur Specific [place] 1.018 (1.001-1.035) Urine Protein Trace (Negative) mg/dL Urine Glucose (UA) Negative (Negative) mg/dL Assessment and Plan Assessment and plan (1) : Code(s): Z34.90 - Encounter for supervision of normal , unspecified, unspecified trimester Status: Acute (2) Anxiety: Code(s): F41.9 - Anxiety disorder, unspecified Status: Acute (3) Depression: Code(s): F32.9 - Major depressive disorder, single episode, unspecified Status: Acute (4) contractions: Code(s): O47.00 - False labor before 37 completed weeks of gestation, unspecified trimester Status: Acute (5) Hypokalemia: Code(s): E87.6 - Hypokalemia Status: Acute Plan Had ultrasound imaging is within normal limits in her cervix is long and closed. Replace potassium and start her on Procardia 10q6. Poor feeder now and watch for signs of
[2025-02-10] MEDS: ONDANSETRON INJ 4 MG/2 ML VIAL IV PUSH (19:56)
[2025-02-11] VITALS (19 sets, daily range): BP systolic 110–119; BP diastolic 53–73; PULSE 63–83; TEMP 36.4–36.6; O2SAT 94–100
[2025-02-11] MEDS: LACTATED RINGERS 1,000 ML 100 ML IV CONT (02:38)
[2025-02-11 04:49] LABS: Hematocrit 27.9 % (37.0-47.0); Hemoglobin 9.3 g/dL (12.0-15.0); Immature Granulocyte Percent A 0.3 % (0-0.5); Lymphocytes Absolute Auto 1.72 K/mm3 (0.9-3.2); Mean Corpuscular HGB Conc 33.3 g/dl (32-36); Mean Corpuscular Hemoglobin 30.2 pg (26-34); Mean Corpuscular Volume 90.6 fl (80-100); Nucleated Red Blood Cells Absolute Auto 0.000 K/mm3 (0.0-0.012); Nucleated Red Blood Cells Perc 0.0 % (0.0-0.2); Platelet Count Result 193 k/mm3 (150-375); Red Blood Count 3.08 M/mm3 (4.2-5.4); White Blood Count 8.9 K/mm3 (4.5-10.0)
[2025-02-11 05:04] LABS: Potassium 3.1 mmol/L (3.4-5.0)
[2025-02-11 05:11] LABS: Alanine Aminotransferase 17 U/L (6-35); Albumin Level 3.2 g/dL (3.5-5.1); Alkaline Phosphatase 107 U/L (38-126); Anion Gap 4 mmol/L (4-12); Aspartate Amino Transferase 20 U/L (14-36); Bilirubin,Total 0.6 mg/dL (0.2-1.3); Blood Urea Nitrogen 3 mg/dL (7-17); Calcium 8.3 mg/dL (8.4-10.2); Carbon Dioxide 24 mmol/L (22-30); Chloride 106 mmol/L (98-107); Estimated CRCL calculation 135 ml/min; Estimated Glomerular Filt Rate > 60; Glucose 90 mg/dL (65-110); Potassium 3.1 mmol/L (3.4-5.0); Sodium 134 mmol/L (137-145); Total Protein 6.0 g/dL (6.3-8.2)
--- NOTE | 2025-02-11 06:51 | PM.OBPNVD ---
OB - PN: Subj Subjective Date/time seen: 02/11/25 06:51 Interval history: Slept through the night with very few contractions OB - PN: Obj Data Labs 02/11/25 04:32 02/11/25 04:32 Labs: Laboratory Results - last 24 hr 02/10/25 02/10/25 02/11/25 14:08 16:15 04:32 WBC 11.7 H 8.9 RBC 3.13 L 3.08 L Hgb 9.5 L 9.3 L Hct 28.0 L 27.9 L MCV 89.5 90.6 MCH 30.4 30.2 MCHC 33.9 33.3 RDW 12.5 12.5 Plt Count 200 193 MPV 10.0 9.8 Immature Gran % (Auto) 0.5 0.3 Neut % (Auto) 76.3 H 73.9 H Lymph % (Auto) 17.5 L 19.4 [place] % (Auto) 4.8 5.2 Eos % (Auto) 0.6 1.0 Baso % (Auto) 0.3 0.2 Lymph # (Auto) 2.05 1.72 [place] # (Auto) 0.6 0.5 Eos # (Auto) 0.1 0.1 Baso # (Auto) 0.0 0.0 Abs Immat Gran (auto) 0.06 H 0.03 Absolute Neuts (auto) 8.9 H 6.5 Absolute Nucleated RBC 0.000 0.000 Nucleated RBC % 0.0 0.0 Sodium 134 L 134 L Potassium 2.5 L* 3.1 L Chloride 108 H Carbon Dioxide 18 L Anion Gap 8 BUN 2 L Creatinine 0.44 L Estim Creat Clear Calc 143 Estimated GFR > 60 Glucose 100 Calcium 8.2 L Total Bilirubin 0.5 AST 19 ALT 20 Alkaline Phosphatase 123 Total Protein 6.2 L Albumin 3.4 L Urine Color Yellow Urine Appearance Cloudy H Urine pH 8.0 Ur Specific [place] 1.018 Urine Protein Trace Urine Glucose (UA) Negative Urine Ketones 3+ H Ur Blood (Man) Negative Urine Nitrate Negative Urine Bilirubin Negative Urine Urobilinogen 1.0 Ur Leukocyte Esterase Trace H Urine RBC 0-2 Urine WBC 0-5 Ur Squamous Epith Cells Few Urine Bacteria None seen Urine Casts 0-2 02/11/25 04:32 WBC RBC Hgb Hct MCV MCH MCHC RDW Plt Count MPV Immature Gran % (Auto) Neut % (Auto) Lymph % (Auto) [place] % (Auto) Eos % (Auto) Baso % (Auto) Lymph # (Auto) [place] # (Auto) Eos # (Auto) Baso # (Auto) Abs Immat Gran (auto) Absolute Neuts (auto) Absolute Nucleated RBC Nucleated RBC % Sodium Potassium 3.1 L Chloride 106 Carbon Dioxide 24 Anion Gap 4 BUN 3 L Creatinine 0.47 L Estim Creat Clear Calc 135 Estimated GFR > 60 Glucose 90 Calcium 8.3 L Total Bilirubin 0.6 AST 20 ALT 17 Alkaline Phosphatase 107 Total Protein 6.0 L Albumin 3.2 L Urine Color Urine Appearance Urine pH Ur Specific [place] Urine Protein Urine Glucose (UA) Urine Ketones Ur Blood (Man) Urine Nitrate Urine Bilirubin Urine Urobilinogen Ur Leukocyte Esterase Urine RBC Urine WBC Ur Squamous Epith Cells Urine Bacteria Urine Casts Imaging Radiologist's impression: Impressions Obstetrics Ultrasound 02/10/25 16:51 IMPRESSION: Single live intrauterine detailed above. No acute process. OB - PN A/P Assessment and Plan (1) contractions: Code(s): O47.00 - False labor before 37 completed weeks of gestation, unspecified trimester Status: Acute Plan Home on Procardia follow-up next week for ultrasound Time Spent With Patient Time: Total time spent is greater than 50% in coordination of care (as documented) at patient's floor/unit and/or counseling patient: Review of Systems Review of Systems: All systems reviewed & are unremarkable except as noted in HPI and below Exam Const: General: cooperative, healthy appearing and comfortable Nutritional Appearance: overweight Orientation/consciousness: oriented to person, oriented to place and oriented to time HENMT: Head: normal to inspection Resp: Effort & Inspection: normal respiratory effort Cardio: Rate: regular rate Rhythm: regular rhythm Heart sounds: S1 normal heart sound present and S2 normal heart sound present GI: Inspection: normal to inspection (Soft gravid uterus) : External Female Exam: normal external appearance Speculum Exam - Vagina: normal appearance of the vagina Speculum Exam - Cervix: normal appearance of the cervix
--- NOTE | 2025-02-11 06:52 | P.DS_ITS ---
DS: Admitting Diagnosis Discharge Date 02/11/2025 Admitting Diagnosis labor DS: Discharge Diagnosis Discharge Diagnosis (1) contractions: Code(s): O47.00 - False labor before 37 completed weeks of gestation, unspecified trimester Status: Acute (2) Hypokalemia: Code(s): E87.6 - Hypokalemia Status: Acute DS: Summary Hospital Course Reason for hospitalization: Patient was with abdominal pain and received 2 doses of terbutaline for contractions she did not change and she slept throughout the night she was given Procardia 10q6 p.r.n. and will be sent home with such Hospital Course: Patient's hospital course unremarkable. She slipped to the night as noted. She was discharged home on Procardia with labor precautions she did have low potassium and had that replaced Time Spent with Patient Time attestation: Total time spent providing and/or coordinating discharge services: Exam Const: General: cooperative, healthy appearing and comfortable Nutritional Appearance: overweight Orientation/consciousness: oriented to person, oriented to place and oriented to time HENMT: Head: normal to inspection Resp: Effort & Inspection: normal respiratory effort Cardio: Rate: regular rate Rhythm: regular rhythm Heart sounds: S1 normal heart sound present and S2 normal heart sound present GI: Inspection: normal to inspection (Soft gravid uterus) : External Female Exam: normal external appearance Speculum Exam - Vagina: normal appearance of the vagina Speculum Exam - Cervix: normal hortencia earance of the cervix DS: Data Data Completed and Pending Labs on day of discharge: Labs from last 24 hours 02/11/25 02/11/25 02/10/25 04:32 04:32 16:15 WBC 8.9 11.7 H RBC 3.08 L 3.13 L Hgb 9.3 L 9.5 L Hct 27.9 L 28.0 L MCV 90.6 89.5 MCH 30.2 30.4 MCHC 33.3 33.9 RDW 12.5 12.5 Plt Count 193 200 MPV 9.8 10.0 Immature Gran % (Auto) 0.3 0.5 Neut % (Auto) 73.9 H 76.3 H Lymph % (Auto) 19.4 17.5 L [place] % (Auto) 5.2 4.8 Eos % (Auto) 1.0 0.6 Baso % (Auto) 0.2 0.3 Lymph # (Auto) 1.72 2.05 [place] # (Auto) 0.5 0.6 Eos # (Auto) 0.1 0.1 Baso # (Auto) 0.0 0.0 Abs Immat Gran (auto) 0.03 0.06 H Absolute Neuts (auto) 6.5 8.9 H Absolute Nucleated RBC 0.000 0.000 Nucleated RBC % 0.0 0.0 Sodium 134 L 134 L Potassium 3.1 L 3.1 L 2.5 L* Chloride 106 108 H Carbon Dioxide 24 18 L Anion Gap 4 8 BUN 3 L 2 L Creatinine 0.47 L 0.44 L Estim Creat Clear Calc 135 143 Estimated GFR > 60 > 60 Glucose 90 100 Calcium 8.3 L 8.2 L Total Bilirubin 0.6 0.5 AST 20 19 ALT 17 20 Alkaline Phosphatase 107 123 Total Protein 6.0 L 6.2 L Albumin 3.2 L 3.4 L Urine Color Urine Appearance Urine pH Ur Specific [place] Urine Protein Urine Glucose (UA) Urine Ketones Ur Blood (Man) Urine Nitrate Urine Bilirubin Urine Urobilinogen Ur Leukocyte Esterase Urine RBC Urine WBC Ur Squamous Epith Cells Urine Bacteria Urine Casts 02/10/25 14:08 WBC RBC Hgb Hct MCV MCH MCHC RDW Plt Count MPV Immature Gran % (Auto) Neut % (Auto) Lymph % (Auto) [place] % (Auto) Eos % (Auto) Baso % (Auto) Lymph # (Auto) [place] # (Auto) Eos # (Auto) Baso # (Auto) Abs Immat Gran (auto) Absolute Neuts (auto) Absolute Nucleated RBC Nucleated RBC % Sodium Potassium Chloride Carbon Dioxide Anion Gap BUN Creatinine Estim Creat Clear Calc Estimated GFR Glucose Calcium Total Bilirubin AST ALT Alkaline Phosphatase Total Protein Albumin Urine Color Yellow Urine Appearance Cloudy H Urine pH 8.0 Ur Specific [place] 1.018 Urine Protein Trace Urine Glucose (UA) Negative Urine Ketones 3+ H Ur Blood (Man) Negative Urine Nitrate Negative Urine Bilirubin Negative Urine Urobilinogen 1.0 Ur Leukocyte Esterase Trace H Urine RBC 0-2 Urine WBC 0-5 Ur Squamous Epith Cells Few Urine Bacteria None seen Urine Casts 0-2 Discharge Plan Discharge Attending physician on discharge: Edgar Alvarez Discharging Clinician: Edgar Alvarez Patient Disposition: Home Activity: may shower, no straining and pelvic rest Diet: heart healthy Wound Care Instructions: follow printed instructions Patient Instructions: Antibiotic Form Patient Language: Bengali Stand Alone Forms: General Discharge Information Follow-up/Referrals: Edgar Alvarez MD [Physician, ENTRY LEVEL LAB TECHNICIAN] Discharge Medications: New nifedipine 10 mg capsule 10 mg PO Q8H Qty: 60 0RF Continued ondansetron HCl 4 mg tablet 4 tablet PO PRN Date of admission: 02/10/25 13:38 Primary Care Provider: Andres,Sheri Joseph Admitting Provider: Edgar Alvarez Attending physician on admission: Edgar Alvarez Condition: Stable
== END 2025-02-11 08:49 | disposition home or self-care (01) ==
PROVIDERS: Admitting Provider Obstetrics & Gynecology; PCP Family Medicine; Visit Provider Obstetrics & Gynecology
DX: O47.03 False labor before 37 completed weeks of gestation, third trimester (principal); Z3A.31 31 weeks gestation of pregnancy; O99.343 Other mental disorders complicating pregnancy, third trimester; F41.9 Anxiety disorder, unspecified; F32.9 Major depressive disorder, single episode, unspecified; O99.891 Other specified diseases and conditions complicating pregnancy; E87.6 Hypokalemia; O99.333 Smoking (tobacco) complicating pregnancy, third trimester; F17.210 Nicotine dependence, cigarettes, uncomplicated; Z82.5 Family history of asthma and other chronic lower respiratory diseases; Z83.6 Family history of other diseases of the respiratory system
CPT/HCPCS: 36415; 76815; 80053; 81001; 84132; 85025; 96361; 96372; 96374; A9270; G0378; G0379; J3105; J3480; J7120